=== PATIENT | male | born 1980 | race Caucasian/White ===

== ENCOUNTER 2016-07-19 08:18 | Emergency (ER) | payer MEDICAID, MEDICARE ==
[2016-07-19 08:45] VITALS: BP 144/95
[2016-07-19] MEDS ORDERED: cefTRIAXone VIAL(*) 1,000 MG VIAL IM ONE (09:09)
[2016-07-19] MEDS ORDERED: Azithromycin TAB* 250 MG PO ONE (09:10)
[2016-07-19] MEDS ORDERED: Lidocaine 1% MPF* 2 ML VIAL ONE (09:14)
--- NOTE | 2016-07-19 09:16 | UC ---
Complaint Male HPI - HPI Summary HPI Summary: 1) Having herpes outbreak starting about a week ago. Had initial outbreak years ago, then was put on daily valtrex. He recently moved away from his PCP and ran out of the valtrex. In a lot of pain, denies drainage or hard lumps. 2) Dysuria starting 2-3 days ago. Reports one UTI in the past. No fever or flank pain. Took pyridium given by sister. Last sexual encounter with woman in May, reports using condom. No recent GC/CHlamydia testing. - History of Current Complaint Chief Complaint: UCGU Stated Complaint: URINARY ISSUE Time Seen by Provider: 07/19/16 08:48 Hx Obtained From: Patient Onset/Duration: Gradual Onset, Lasting Days Timing: Constant Severity Initially: Mild Severity Currently: Moderate Location: Suprapubic - herpes lesions Character: Burning Aggravating Factor(s): Voiding, Palpation Alleviating Factor(s): Nothing Associated Signs And Symptoms: Positive: Dysuria - Allergies/Home Medications Allergies/Adverse Reactions: Allergies Allergy/AdvReac Type Severity Reaction Status Date / Time No Known Allergies Allergy Verified 07/19/16 08:46 Home Medications: Home Medications Vivance 70 mg 07/19/16 [History] PMH/Surg Hx/FS Hx/Imm Hx Endocrine History Of: Denies: Diabetes, Thyroid Disease Cardiovascular History Of: Denies: Cardiac Disorders, Hypertension Respiratory History Of: Denies: COPD, Asthma GI/ History Of: Denies: Ulcer Psychological History Of: Reports: Depression Denies: Anxiety, Bipolar Disorder, Schizophrenia, Post Traumatic Stress Disorder - Surgical History Surgical History: Yes Surgery Procedure, Year, and Place: -1994 - Family History Known Family History: Positive: Diabetes Negative: Cardiac Disease, Hypertension - Social History Occupation: Employed Full-time Lives: Alone Alcohol Use: None Substance Use Type: None Smoking Status (MU): Heavy Every Day Tobacco Smoker Amount Used/How Often: 1ppd - Immunization History Most Recent Influenza Vaccination: may 2016 Review of Systems Constitutional: Negative Skin: Rash Eyes: Negative ENT: Negative Respiratory: Negative Cardiovascular: Negative Gastrointestinal: Negative Genitourinary: Dysuria Motor: Negative Neurovascular: Negative Musculoskeletal: Negative Neurological: Negative Psychological: Negative All Other Systems Reviewed And Are Negative: Yes Physical Exam Triage Information Reviewed: Yes Appearance: Well-Appearing, No Pain Distress, Well-Nourished Vital Signs: Initial Vital Signs Temp 98.4 F 07/19/16 08:40 Pulse 106 07/19/16 08:40 Resp 20 07/19/16 08:40 BP 144/95 07/19/16 08:40 Pulse Ox 100 07/19/16 08:40 Vital Signs Reviewed: Yes Eye Exam: Normal Eyes: Positive: Conjunctiva Clear ENT Exam: Normal ENT: Positive: Normal ENT inspection, Hearing grossly normal, Pharynx normal, TMs normal Dental Exam: Normal Neck exam: Normal Neck: Positive: Supple, Nontender, No Lymphadenopathy Respiratory Exam: Normal Respiratory: Positive: Chest non-tender, Lungs clear, Normal breath sounds, No respiratory distress, No accessory muscle use Cardiovascular Exam: Normal Cardiovascular: Positive: RRR, No Murmur Abdomen Description: Negative: CVA Tenderness (R), CVA Tenderness (L) Musculoskeletal Exam: Normal Neurological Exam: Normal Psychological Exam: Normal Skin Exam: Other - few red spots just superior to penis. No ulcers or drainage. Complaint Male Course/Dx - Differential Dx/Diagnosis Provider Diagnoses: Genital herpes. dysuria Discharge - Discharge Plan Condition: Stable Disposition: HOME Prescriptions: Indomethacin CAP* [Indocin CAP*] 50 mg PO TID PRN #30 cap PRN Reason: Pain ValACYclovir (*) [Valtrex 500 mg (*)] 500 mg PO DAILY #30 tab Patient Education Materials: Genital Herpes Simplex (ED), Dysuria (ED) Referrals: [facility] [Outside] Additional Instructions: Labwork pending to help determine if you have a urinary infection. Please call the physician referral center [facility] to arrange for a primary care provider.
== END 2016-07-19 09:40 | disposition home or self-care (01) ==
LOC: UCEAST 08:18
DX: A60.00 Herpesviral infection of urogenital system, unspecified (principal); R30.0 Dysuria
CPT/HCPCS: 81002; 87086; 87491; 87591; 96372; 99212; A9270-GY; G0463; J0696

== ENCOUNTER 2016-07-24 13:55 | Emergency (ER) | payer MEDICAID, MEDICARE ==
[2016-07-24 14:08] VITALS: BP 145/78
[2016-07-24] MEDS ORDERED: LORazepam TAB(*) 1 MG PO ONE (14:18)
[2016-07-24] MEDS ORDERED: Aspirin EC Low Dose* 81 MG TAB.EC PO ONE (14:21)
[2016-07-24] MEDS ORDERED: Aspirin Low Dose CHEW TAB* 81 MG ONE (14:29)
--- NOTE | 2016-07-24 14:29 | UC ---
Cardiac HPI - HPI Summary HPI Summary: intermittent chest pains for the past few months, sharp and stabbing and lasting a few minutes at a time. Today he has had constant pain in left chest for past 3 hours, pressure and very uncomfortable. Radiates up into neck. Left arm "completely numb". Feels heart palpitations from time to time. Feels dizzy and like he might pass out. Occasionally with SOB. No history of heart disease, but father of heart attack in his 50s. High cholesterol a few years ago. Heavy smoker. He is very concerned about possible heart disease. Takes Vyvanse 70mg now and then, not always daily. No change in past few years with this. Used to be on Effexor for depression, it was discontinued a year ago. Admits to being under a lot of stress recently. Sleeping well. No vomiting, no sweating. No change with exertion, though walking in here his pain worsened - History of Current Complaint Chief Complaint: UC Stated Complaint: CHEST PAIN ARMS NUMB Time Seen by Provider: 07/24/16 14:01 Hx Obtained From: Patient Onset/Duration: Gradual Onset, Lasting Hours - 3 Timing: Constant Initial Severity: Mild Current Severity: Severe Chest Pain Location: Left Anterior Character: Pounding - occasional, Dull/Aching, Tightness, Pressure/Squeezing, Sharp/Stabbing - at times Aggravating: Nothing Alleviating: Nothing Associated Signs & Symptoms: Positive: Chest Pain, Recent Stress, Numbness - left arm, Weakness, Dizziness, SOB - off and on today, Diaphoresis - off and on today, Palpitations. Negative: Anxiety, Fever, Cough, Hemoptysis, Back Pain - Risk Factors Pulmonary Embolism Risk Factors: Smoking Cardiac Risk Factors: Smoking, Elevated Lipids, Family History Atrial Fibrillation: Negative TAD Risk Factors: Negative AMI/ACS Risk Factors: Family History, Smoking, Dyslipidemia - Allergy/Home Medications Allergies/Adverse Reactions: Allergies Allergy/AdvReac Type Severity Reaction Status Date / Time No Known Allergies Allergy Verified 07/24/16 14:02 Home Medications: Home Medications Aspirin [Aspirtab Maximum Strength] 500 mg PO DAILY PRN 07/24/16 [History Confirmed 07/24/16] Esomeprazole Magnesium [Nexium] 40 mg PO DAILY 07/24/16 [History Confirmed 07/24] Ibuprofen [Ibuprofen 200 MG] 200 mg PO Q8H PRN 07/24/16 [History Confirmed 07/24] PMH/Surg Hx/FS Hx/Imm Hx - Additional Past Medical History Additional PMH: ADHD treated with Vyvanse Endocrine History Of: Denies: Diabetes, Thyroid Disease Cardiovascular History Of: Denies: Cardiac Disorders, Hypertension Respiratory History Of: Denies: COPD, Asthma GI/ History Of: Denies: Ulcer Psychological History Of: Reports: Depression Denies: Anxiety, Bipolar Disorder, Schizophrenia, Post Traumatic Stress Disorder - Surgical History Surgical History: Yes Surgery Procedure, Year, and Place: hernia-1994 - Family History Known Family History: Positive: Diabetes Negative: Cardiac Disease, Hypertension - Social History Occupation: Employed Full-time - works on a farm, heavy lifting Lives: With Family Alcohol Use: None Substance Use Type: None Smoking Status (MU): Heavy Every Day Tobacco Smoker Amount Used/How Often: 1 1/2ppd - Immunization History Most Recent Influenza Vaccination: may 2016 Review of Systems Constitutional: Negative Skin: Negative Eyes: Negative ENT: Negative Respiratory: Shortness Of Breath Cardiovascular: Palpitations, Chest Pain Gastrointestinal: Negative Genitourinary: Negative Motor: Negative Neurovascular: Negative Musculoskeletal: Negative Neurological: Paresthesia - left arm/hand numb and tingly off and on today, Numbness Psychological: Anxious All Other Systems Reviewed And Are Negative: Yes Physical Exam Triage Information Reviewed: Yes Appearance: Well-Appearing, Well-Nourished, Pain Distress - looks anxious, clutching his chest Vital Signs: Initial Vital Signs Temp 97.6 F 07/24/16 14:04 Pulse 105 07/24/16 14:04 Resp 16 07/24/16 14:04 BP 145/78 07/24/16 14:04 Pulse Ox 100 07/24/16 14:04 Vital Signs Reviewed: Yes Eye Exam: Normal Neck exam: Normal Neck: Positive: Supple Respiratory Exam: Normal Respiratory: Positive: Lungs clear, Normal breath sounds, No respiratory distress, No accessory muscle use. Negative: Crackles, Wheezing Cardiovascular Exam: Normal Cardiovascular: Positive: RRR, No Murmur, Pulses Normal, Brisk Capillary Refill Abdominal Exam: Normal Musculoskeletal Exam: Normal Neurological Exam: Normal Neurological: Positive: Alert, Muscle Tone Normal, Other: - normal movement of left hand, htough he says it feels strange to light touch. Normal gait and station. Gets up on exam table without difficulty Psychological Exam: Other - anxious, appears very worried Psychological: Positive: Normal Response To Family Skin Exam: Normal Skin: Positive: Other - not diaphoretic; pink, good capillary refill Diagnostics - Laboratory Diagnostic Studies Completed/Ordered: EKG: NSR, no ischemic changes, no comparison - Differential Diagnoses - Chest Pain Differential Diagnosis/HQI/PQRI: Acute [place], Angina, Lower Respiratory Infection, Pulmonary Embolism - Clinical Impression Provider Diagnoses: chest pain - Physician Notifications Discussed Patient Care With: NEETA Santamaria Time Discussed With Above Provider: 14:20 Instructed by Provider To: MD Will See In ED Discharge - Discharge Plan Condition: Stable Disposition: TRANS HIGHER LVL OF CARE FAC Referrals: No Primary Care Phys,NOPCP [Primary Care Provider] -
== END 2016-07-24 14:45 | disposition short-term general hospital (02) ==
LOC: UCEAST 13:55
DX: R07.89 Other chest pain (principal); R20.0 Anesthesia of skin; F17.210 Nicotine dependence, cigarettes, uncomplicated
CPT/HCPCS: 99213; A9270-GY; G0463

== ENCOUNTER 2016-07-24 15:08 | Emergency (ER) | payer MEDICARE, MEDICAID ==
[2016-07-24] MEDS ORDERED: Aspirin Low Dose CHEW TAB* 81 MG PO ONE (15:22)
[2016-07-24 16:18] LABS: Hematocrit 48 % (42-52); Hemoglobin 16.6 g/dl (14.0-18.0); Mean Corpuscular HGB Conc 34 g/dl (31-36); Mean Corpuscular Hemoglobin 31 pg (27-31); Mean Corpuscular Volume 90 fL (80-94); Mean Platelet Volume 8 um3 (7.4-10.4); Red Blood Count 5.35 10^6/ul (4.0-5.4); Red Cell Distribution Width 13 % (10.5-15); White Blood Count 9.5 10^3/ul (3.5-10.8)
--- NOTE | 2016-07-24 16:32 | RAD ---
HISTORY: Chest pain COMPARISONS: None VIEWS:1: Single frontal portable view of the chest at 3:55 PM FINDINGS: LINES AND TUBES: None. CARDIOMEDIASTINAL SILHOUETTE: The cardiomediastinal silhouette is normal for portable technique. PLEURA: The costophrenic angles are sharp. No pleural abnormalities are noted. LUNG PARENCHYMA: The lungs are clear. ABDOMEN: The upper abdomen is clear. There is no subphrenic gas. BONES AND SOFT TISSUES: No bone or soft tissue abnormalities are noted. IMPRESSION: NO ACTIVE CARDIOPULMONARY DISEASE.
[2016-07-24 16:35] LABS: Albumin 4.7 g/dL (3.2-5.2); BUN/Creatinine Ratio 12.2 (8-20); Calcium 9.9 mg/dL (8.6-10.3); EGFR African American 111.3 (>60); EGFR Non-African American 86.5 (>60); Globulin 2.8 g/dL (2-4); Magnesium 2.1 mg/dL (1.9-2.7); Potassium 3.4 mmol/L (3.5-5.0); Total Bilirubin 0.5 mg/dL (0.2-1.0); Total Protein 7.5 g/dL (6.4-8.9)
[2016-07-24 16:53] LABS: TSH (Thyroid Stimulating Horm) 0.75 mcIU/mL (0.34-5.60)
[2016-07-24] MEDS ORDERED: hydrOXYzine HCL TAB* 25 MG ONE (18:09)
[2016-07-24] MEDS ORDERED: Ibuprofen TAB* 600 MG ONE (18:09)
[2016-07-24] MEDS ORDERED: hydrOXYzine HCL TAB* 50 MG PO ONE (18:10)
[2016-07-24] MEDS ORDERED: Ibuprofen TAB* 600 MG PO ONE (18:11)
[2016-07-24] MEDS ORDERED: Potassium Chlor TAB* 20 MEQ TAB.ER PO ONE (18:12)
[2016-07-24 18:47] VITALS: BP 123/77
--- NOTE | 2016-07-24 19:07 | ED ---
Maliha Aguillon Claudia, scribed for Romero Thomas MD on 07/24/16 at 1521 . HPI Chest Pain - HPI Summary HPI Summary: 35 year old male presents to the ED with CP. Pt is referred to [facility] ED from Urgent Care. Pt also admits to bilateral arm numbness which has now localized to his left arm. Pt describes the left anterior CP as a pressure/tightness. Pt also admits to elevated HR and SOB. Pt denies N/V. FHx: Cardiac Disease, father [place] at age 55 SHX: Heavy cigarette usage - History of Current Complaint Time Seen by Provider: 07/24/16 15:18 Hx Obtained From: Patient Onset/Duration: Started Hours Ago, Still Present Timing: Constant Chest Pain Location: Left Anterior Chest Pain Radiates: No Character: Dyspnea at Rest, Pressure/Squeezing, Tightness Aggravating Factor(s): Nothing Alleviating Factor(s): Nothing Associated Signs and Symptoms: Positive: Chest Pain, Numbness - left arm, Shortness of Breath. Negative: Nausea, Vomiting - Allergy/Home Medications Allergies/Adverse Reactions: Allergies Allergy/AdvReac Type Severity Reaction Status Date / Time No Known Allergies Allergy Verified 07/24/16 14:02 PMH/Surg Hx/FS Hx/Imm Hx Previously Healthy: Yes Endocrine/Hematology History: Denies: Hx Diabetes, Hx Thyroid Disease Cardiovascular History: Denies: Hx Hypertension Respiratory History: Denies: Hx Asthma, Hx Chronic Obstructive Pulmonary Disease (COPD) GI History: Denies: Hx Ulcer Psychiatric History: Reports: Hx Depression Denies: Hx Anxiety, Hx Schizophrenia, Hx Bipolar Disorder - Surgical History Surgery Procedure, Year, and Place: -1994 Infectious Disease History: Denies: Hx Clostridium Difficile, Hx Hepatitis, Hx Human Immunodeficiency Virus (HIV), Hx of Known/Suspected MRSA, Hx Shingles, Hx Tuberculosis, Hx Known/ Suspected VRE, Hx Known/Suspected VRSA, History Other Infectious Disease - Family History Known Family History: Positive: Cardiac Disease - Father [place] age 55 , Diabetes Negative: Hypertension - Social History Occupation: Unemployed Alcohol Use: None Substance Use Type: Reports: None Smoking Status (MU): Heavy Every Day Tobacco Smoker Amount Used/How Often: 1 1/2ppd Review of Systems Constitutional: Negative Eyes: Negative ENT: Negative Positive: Chest Pain Positive: Shortness Of Breath Gastrointestinal: Negative Negative: Vomiting, Nausea Genitourinary: Negative Musculoskeletal: Negative Skin: Negative Positive: Numbness - left arm Psychological: Normal All Other Systems Reviewed And Are Negative: Yes Physical Exam - Summary Physical Exam Summary: VITAL SIGNS: Reviewed. GENERAL: Patient is a well developed and nourished male who is lying comfortable in the stretcher. Patient is not in any acute respiratory distress. HEAD AND FACE: No signs of trauma. No ecchymosis, hematomas or skull depressions. No sinus tenderness. EYES: PERRLA, EOMI x 2, No injected conjunctiva, no nystagmus. EARS: Hearing grossly intact. Ear canals and tympanic membranes are within normal limits. MOUTH: Oropharynx within normal limits. NECK: Supple, trachea is midline, no adenopathy, no JVD, no carotid bruit, no c- spine tenderness, neck with full ROM. CHEST: Symmetric, no tenderness at palpation LUNGS: Clear to auscultation bilaterally. No wheezing or crackles. CVS: Regular rate and rhythm, S1 and S2 present, no murmurs or gallops appreciated. ABDOMEN: Soft, non-tender. No signs of distention. No rebound no guarding, and no masses palpated. Bowel sounds are normal. EXTREMITIES: FROM in all major joints, no edema, no cyanosis or clubbing. NEURO: Alert and oriented x 3. No acute neurological deficits. Speech is normal and follows commands. SKIN: Dry and warm Triage Information Reviewed: Yes Vital Signs Reviewed: Yes Diagnostics - Laboratory Result Diagrams: 07/24/16 16:00 07/24/16 16:00 Lab Statement: Any lab studies that have been ordered have been reviewed, and results considered in the medical decision making process. - Radiology CHEST XRAY Xray Interpretation: No Acute Changes - NO ACTIVE CARDIOPULMONARY DISEASE Radiology Interpretation Completed By: Radiologist - EKG 15:07 Cardiac Rate: NL EKG Rhythm: Sinus Rhythm - 74 beats/min ST Segment: Normal - no ST elevation EKG Interpretation: Q waves in V1 and V2 18:19 Cardiac Rate: NL EKG Rhythm: Sinus Rhythm - 75 beats/min ST Segment: Normal - no ST elevation Chest Pain Course/Dx - Course Assessment/Plan: This pt is a 35 year old male who presents to the ED after transferred from urgent care. Pt presented with c/c of CP. CP described as sharp pain and not associated with exertion, nausea, vomiting or diaphoresis. Lab results are within nml limits, sodium of 128 and potassium of 3.4. Troponin is 0.00. CXR displays no acute pathology. EKG 1 shows NSR with no ST elevation and EKG 2 same as the first. Pt seems to be very anxious and was given atarax, after medication Sx improved. He is feeling better with no other complaints. Patient reports that all symptoms have resolved. Patient has been observed in the ER for approximately 3 hours. Because the patient has no significant comorbidities and no family history of cardiovascular disease the patient will be discharged home with follow up of PMD. I discussed all the findings and test results with the patient. Patient was instructed to return to the emergency room immediately if any of the symptoms return or worsens. Patient understands and agrees. Plan of care was discussed with the patient and patient understands and agrees. All questions were answered at patient satisfaction. There were no further complaints or concerns. PE before discharge: CVS: S1 and S2 present. No murmurs appreciated. Abdominal exam before discharge: Soft, non- tender. No signs of distention. No rebound no guarding, and no masses palpated. Bowel sounds are normal. Patient is alert and oriented x 3. Patient is hemodynamically stable. - Chest Pain Differential Diagnosis/HQI/PQRI: Acute [place], ACS, Angina, CHF, Chest Wall, GI Disease, Lower Respiratory Infection - Diagnoses Provider Diagnoses: Chest pain, Anxiety Discharge - Discharge Plan Condition: Stable Disposition: HOME Prescriptions: hydrOXYzine HCL TAB* [Atarax TAB*] 25 mg PO TID PRN #30 tab PRN Reason: Anxiety Patient Education Materials: Chest Pain (ED), Anxiety (ED), Hydroxyzine (By mouth) Referrals: [facility] [Outside] - 2 Days (Please follow-up with a Primary Care Provider.) The documentation as recorded by the Maliha millard Claudia accurately reflects the service I personally performed and the decisions made by me, Romero Thomas MD.
== END 2016-07-24 18:43 | disposition home or self-care (01) ==
LOC: ED 15:08
DX: R07.9 Chest pain, unspecified (principal); F41.9 Anxiety disorder, unspecified
CPT/HCPCS: 36415; 71010; 80053; 82553; 83605; 83735; 83874; 83880; 84443; 84484; 85025; 93005; 99213; 99284; A9270-GY; G0463

== ENCOUNTER 2016-12-09 10:26 | Emergency (ER) | payer MEDICARE, MEDICAID ==
[2016-12-09] MEDS ORDERED: Aspirin Low Dose CHEW TAB* 81 MG PO ONE (11:41)
[2016-12-09 11:45] VITALS: BP 128/76
--- NOTE | 2016-12-09 14:03 | UC ---
I, Ponce,Miah, scribed for Carmelita Sarmiento DO on 12/09/16 at 1141 . Cardiac HPI - HPI Summary HPI Summary: This 35 y/o male presents to [facility] for constant 7/10, left sided CP since 2 days ago. Pain radiates to neck and described as dull CP with intermittent sharp pain lasting seconds. Negative ear ache, eye discharge, dysuria, HUSSEIN, rash, CP, SOB, and diaphoresis. Positive coughing. Stress and movement make the pain worse. Pt decided to visit [facility] when he became concerned about possible cardiac etiologies. 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 Pt denies any PMHx, but he is currently on Vyvanse. Last visit to [facility] and ED was in July 2016 and due for similar complaint. Pt was discharged home with dx of CP and anxiety and rx of hydroxyzine. FHx is positive for DM and cardiac dz to father. Pt is heavy everyday smoker. Pt is strongly recommended to be transfer to [facility], but pt declines. R/b/a is discussed with pt, and pt is discharged AMA with family physician referral, and STRONG staff counsel against smoking. Pt is advised against IBP or NSAID, but recommended tylenol for pain control. - History of Current Complaint Chief Complaint: UCChestPain Stated Complaint: CHEST PAIN Time Seen by Provider: 12/09/16 10:51 Hx Obtained From: Patient, Medical Records Onset/Duration: Sudden Onset, Still Present Pain Intensity: 7 Chest Pain Location: Left Anterior Character: Pressure/Squeezing, Sharp/Stabbing - intermittent Aggravating: Exertion, Movement Alleviating: Nothing Associated Signs & Symptoms: Positive: Chest Pain, Recent Stress, Cough. Negative: SOB, Fever, Nausea/Vomiting, Calf Pain/Swelling - Allergy/Home Medications Allergies/Adverse Reactions: Allergies Allergy/AdvReac Type Severity Reaction Status Date / Time No Known Allergies Allergy Verified 07/24/16 14:02 PMH/Surg Hx/FS Hx/Imm Hx Endocrine History Of: Denies: Diabetes, Thyroid Disease Cardiovascular History Of: Denies: Cardiac Disorders, Hypertension Respiratory History Of: Denies: COPD, Asthma GI/ History Of: Denies: Ulcer Psychological History Of: Reports: Depression Denies: Anxiety, Bipolar Disorder, Schizophrenia, Post Traumatic Stress Disorder - Surgical History Surgical History: Yes Surgery Procedure, Year, and Place: hernia-1994 - Family History Known Family History: Positive: Cardiac Disease - Father [place] age 55 , Diabetes Negative: Hypertension - Social History Lives: Alone Alcohol Use: None Substance Use Type: None Smoking Status (MU): Heavy Every Day Tobacco Smoker Amount Used/How Often: 1ppd Cessation Counseling: Counseled 3+Min - 10 Min - Immunization History Most Recent Influenza Vaccination: may 2016 Review of Systems Constitutional: Negative Skin: Negative Eyes: Negative ENT: Negative Respiratory: Cough Cardiovascular: Chest Pain Gastrointestinal: Negative Genitourinary: Negative Motor: Negative Neurovascular: Negative Musculoskeletal: Negative Neurological: Negative Psychological: Negative All Other Systems Reviewed And Are Negative: Yes Physical Exam Triage Information Reviewed: Yes Appearance: Well-Appearing, No Pain Distress, Well-Nourished Vital Signs: Initial Vital Signs Temp 98.1 F 12/09/16 11:04 Pulse 87 12/09/16 11:04 Resp 18 12/09/16 11:04 BP 128/76 12/09/16 11:04 Pulse Ox 100 12/09/16 11:04 Vital Signs Reviewed: Yes Eyes: Positive: Conjunctiva Clear. Negative: Discharge ENT: Positive: Hearing grossly normal. Negative: Muffled/hoarse voice Neck exam: Normal Neck: Positive: Supple Respiratory: Positive: Lungs clear, Normal breath sounds, No respiratory distress Cardiovascular: Positive: No Murmur, Tachycardia - HR of 104 noted during physical exam Musculoskeletal: Positive: Strength Intact, ROM Intact Neurological: Positive: Muscle Tone Normal Psychological: Positive: Age Appropriate Behavior Skin Exam: Normal Diagnostics - EKG Cardiac Rate: NL - 70 bpm Cardiac Rhythm: Sinus: Normal Ectopy: None ST Segment: Normal - No change since 07/24/2016 Re-Evaluation - Re-Evaluation First Eval Re-Evaluation Time: 11:42 Comment: Plan of care is discussed with pt, and pt is again strongly reminded to visit ED if pt develops dizziness, diaphoresis, or nausea. Pt states that he has already taken ASA this morning [employer]NAL [employer]UITER. ASA order at cancelled. - Assessment/Plan Course Of Treatment: Medication list reivewed and confirmed. Vital signed reviewed. - Differential Diagnoses - Chest Pain Differential Diagnosis/HQI/PQRI: Acute [place], ACS, Angina, Chest Wall, GI Disease, Lower Respiratory Infection - Clinical Impression Provider Diagnoses: chest pain Discharge - Discharge Plan Condition: Stable Disposition: AGAINST MEDICAL ADVICE Referrals: No Primary Care Phys,NOPCP [Primary Care Provider] - The documentation as recorded by the Ponce millard Soohyun accurately reflects the service I personally performed and the decisions made by , Carmelita Sarmiento DO.
== END 2016-12-09 11:47 | disposition left against medical advice (07) ==
LOC: UCEAST 10:26
DX: R07.9 Chest pain, unspecified (principal); F17.210 Nicotine dependence, cigarettes, uncomplicated; F32.9 Major depressive disorder, single episode, unspecified
CPT/HCPCS: 93005; 99212; G0463

== ENCOUNTER 2016-12-09 13:34 | Emergency (ER) | payer MEDICARE, MEDICAID ==
[2016-12-09] MEDS ORDERED: Aspirin Low Dose CHEW TAB* 81 MG PO ONE (15:01)
[2016-12-09 15:29] LABS: Urine Bilirubin Negative (Negative); Urine Glucose Negative (Negative); Urine Nitrite Negative (Negative)
--- NOTE | 2016-12-09 15:41 | RAD ---
HISTORY: Chest pain COMPARISONS: July 24, 2016 VIEWS:1: Single frontal portable view of the chest at 3:14 PM FINDINGS: LINES AND TUBES: None. CARDIOMEDIASTINAL SILHOUETTE: The cardiomediastinal silhouette is normal for portable technique. PLEURA: The costophrenic angles are sharp. No pleural abnormalities are noted. LUNG PARENCHYMA: The lungs are clear. ABDOMEN: The upper abdomen is clear. There is no subphrenic gas. BONES AND SOFT TISSUES: No bone or soft tissue abnormalities are noted. IMPRESSION: NO ACTIVE CARDIOPULMONARY DISEASE.
[2016-12-09 16:01] LABS: Hematocrit 46 % (42-52); Hemoglobin 15.7 g/dl (14.0-18.0); Mean Corpuscular HGB Conc 34 g/dl (31-36); Mean Corpuscular Hemoglobin 31 pg (27-31); Mean Corpuscular Volume 89 fL (80-94); Mean Platelet Volume 8 um3 (7.4-10.4); Red Blood Count 5.15 10^6/ul (4.0-5.4); Red Cell Distribution Width 13 % (10.5-15); White Blood Count 10.6 10^3/ul (3.5-10.8)
[2016-12-09] MEDS ORDERED: Ketorolac INJ* 30 MG/ML 1 ML VIAL IV PUSH ONE (16:14)
[2016-12-09 16:19] LABS: Albumin 4.3 g/dL (3.2-5.2); BUN/Creatinine Ratio 13.2 (8-20); Calcium 9.5 mg/dL (8.6-10.3); EGFR African American 121.2 (>60); EGFR Non-African American 94.3 (>60); Globulin 2.8 g/dL (2-4); Magnesium 2.1 mg/dL (1.9-2.7); Potassium 3.6 mmol/L (3.5-5.0); Total Bilirubin 0.6 mg/dL (0.2-1.0); Total Protein 7.1 g/dL (6.4-8.9)
[2016-12-09 16:45] LABS: T4 7.35 mcg/mL (6.09-12.23)
[2016-12-09 16:46] LABS: TSH (Thyroid Stimulating Horm) 0.95 mcIU/mL (0.34-5.60)
[2016-12-09 18:29] VITALS: BP 105/68
--- NOTE | 2016-12-09 18:38 | ED ---
carlos Aguillon Timothy, scribed for Romero Thomas MD on 12/09/16 at 1513 . HPI Chest Pain - HPI Summary HPI Summary: Too James is a 35 yo male presenting to [facility] with intermediate 10/10 sharp left sided CP and tightness radiating through his left arm and jaw since , with episodes lasting seconds. He has felt nauseous and dizzy as well. Pt is now SOB, and has a FHx of fatal OR at a young age. He has self medicated with tylenol. His MHx includes depression, tobacco use. - History of Current Complaint Chief Complaint: EDChestPainROMI Time Seen by Provider: 12/09/16 14:59 Hx Obtained From: Patient Onset/Duration: Started Days Ago, Still Present Timing: Intermittent, Lasting Seconds Initial Severity: Moderate Current Severity: Moderate Pain Intensity: 10 Pain Scale Used: 0-10 Numeric Chest Pain Location: Discrete at: - left side Chest Pain Radiates: Yes Chest Pain Radiates To:: Arm - left, Jaw Character: Sharp/Stabbing, Tightness Associated Signs and Symptoms: Positive: Chest Pain, Shortness of Breath, Nausea - Allergy/Home Medications Allergies/Adverse Reactions: Allergies Allergy/AdvReac Type Severity Reaction Status Date / Time No Known Allergies Allergy Verified 07/24/16 14:02 PMH/Surg Hx/FS Hx/Imm Hx Endocrine/Hematology History: Denies: Hx Diabetes, Hx Thyroid Disease Cardiovascular History: Denies: Hx Hypertension Respiratory History: Denies: Hx Asthma, Hx Chronic Obstructive Pulmonary Disease (COPD) GI History: Denies: Hx Ulcer Psychiatric History: Reports: Hx Depression Denies: Hx Anxiety, Hx Schizophrenia, Hx Bipolar Disorder - Surgical History Surgery Procedure, Year, and Place: -1994 Infectious Disease History: No Infectious Disease History: Denies: Hx Clostridium Difficile, Hx Hepatitis, Hx Human Immunodeficiency Virus (HIV), Hx of Known/Suspected MRSA, Hx Shingles, Hx Tuberculosis, Hx Known/ Suspected VRE, Hx Known/Suspected VRSA, History Other Infectious Disease, Traveled Outside the [place] in Last 30 Days - Family History Known Family History: Positive: Cardiac Disease - Father OR age 55 , Diabetes Negative: Hypertension - Social History Alcohol Use: None Hx Substance Use: No Substance Use Type: Reports: None Smoking Status (MU): Heavy Every Day Tobacco Smoker Amount Used/How Often: 1 1/2ppd Review of Systems Constitutional: Negative Eyes: Negative ENT: Negative Positive: Chest Pain Positive: Shortness Of Breath Gastrointestinal: Negative Positive: Nausea Genitourinary: Negative Musculoskeletal: Negative Skin: Negative Neurological: Other - dizziness Psychological: Normal All Other Systems Reviewed And Are Negative: Yes Physical Exam - Summary Physical Exam Summary: VITAL SIGNS: Reviewed. GENERAL: Patient is a well-developed and nourished male who is lying comfortable in the stretcher. Patient is not in any acute respiratory distress. HEAD AND FACE: No signs of trauma. No ecchymosis, hematomas or skull depressions. No sinus tenderness. EYES: PERRLA, EOMI x 2, No injected conjunctiva, no nystagmus. EARS: Hearing grossly intact. Ear canals and tympanic membranes are within normal limits. MOUTH: Oropharynx within normal limits. NECK: Supple, trachea is midline, no adenopathy, no JVD, no carotid bruit, no c- spine tenderness, neck with full ROM. CHEST: Symmetric, no tenderness at palpation LUNGS: Clear to auscultation bilaterally. No wheezing or crackles. CVS: Regular rate and rhythm, S1 and S2 present, no murmurs or gallops appreciated. ABDOMEN: Soft, non-tender. No signs of distention. No rebound no guarding, and no masses palpated. Bowel sounds are normal. EXTREMITIES: FROM in all major joints, no edema, no cyanosis or clubbing. NEURO: Alert and oriented x 3. No acute neurological deficits. Speech is normal and follows commands. SKIN: Dry and warm Triage Information Reviewed: Yes Vital Signs On Initial Exam: Initial Vitals Temp Pulse Resp BP Pulse Ox 97.8 F 93 16 145/94 100 12/09/16 13:35 12/09/16 13:35 12/09/16 13:35 12/09/16 13:35 12/09/16 13:35 Vital Signs Reviewed: Yes Diagnostics - Vital Signs Vital Signs Temp Pulse Resp BP Pulse Ox 12/09/16 14:43 97.1 F 90 18 140/83 99 12/09/16 13:35 97.8 F 93 16 145/94 100 - Laboratory Lab Results: Lab Results 12/09/16 12/09/16 12/09/16 Range/Units 13:45 15:50 15:50 WBC 10.6 (3.5-10.8) 10^3/ul RBC 5.15 (4.0-5.4) 10^6/ul Hgb 15.7 (14.0-18.0) g/dl Hct 46 (42-52) % MCV 89 (80-94) fL MCH 31 (27-31) pg MCHC 34 (31-36) g/dl RDW 13 (10.5-15) % Plt Count 212 (150-450) 10^3/ul MPV 8 (7.4-10.4) um3 Neut % (Auto) 67.0 (38-83) % Lymph % (Auto) 26.7 (25-47) % Gibson % (Auto) 4.5 (1-9) % Eos % (Auto) 1.2 (0-6) % Baso % (Auto) 0.6 (0-2) % Absolute Neuts (auto) 7.1 (1.5-7.7) 10^3/ul Absolute Lymphs (auto) 2.8 (1.0-4.8) 10^3/ul Absolute Monos (auto) 0.5 (0-0.8) 10^3/ul Absolute Eos (auto) 0.1 (0-0.6) 10^3/ul Absolute Basos (auto) 0.1 (0-0.2) 10^3/ul Absolute Nucleated RBC 0 10^3/ul Nucleated RBC % 0 D-Dimer, Quantitative < 200 (Less Than 230) ng/mL Sodium (133-145) mmol/L Potassium (3.5-5.0) mmol/L Chloride (101-111) mmol/L Carbon Dioxide (22-32) mmol/L Anion Gap (2-11) mmol/L BUN (6-24) mg/dL Creatinine (0.67-1.17) mg/dL Est GFR ( Amer) (>60) Est GFR (Non-Af Amer) (>60) BUN/Creatinine Ratio (8-20) Glucose (70-100) mg/dL Lactic Acid (0.5-2.0) mmol/L Calcium (8.6-10.3) mg/dL Magnesium (1.9-2.7) mg/dL Total Bilirubin (0.2-1.0) mg/dL AST (13-39) U/L ALT (7-52) U/L Alkaline Phosphatase (34-104) U/L Total Creatine Kinase (10-223) U/L CK-MB (CK-2) (0.6-6.3) ng/mL Myoglobin (17.4-105.7) ng/mL Troponin I (<0.04) ng/mL B-Natriuretic Peptide ( - 100) pg/mL Total Protein (6.4-8.9) g/dL Albumin (3.2-5.2) g/dL Globulin (2-4) g/dL Albumin/Globulin Ratio (1-3) TSH (0.34-5.60) mcIU/mL Thyroxine (T4) (6.09-12.23) mcg/mL Urine Color Straw Urine Appearance Clear Urine pH 6.0 (5-9) Ur Specific [place] 1.006 L (1.010-1.030) Urine Protein Negative (Negative) Urine Ketones Negative (Negative) Urine Blood Negative (Negative) Urine Nitrate Negative (Negative) Urine Bilirubin Negative (Negative) Urine Urobilinogen Negative (Negative) Ur Leukocyte Esterase Negative (Negative) Urine Glucose Negative (Negative) 12/09/16 12/09/16 12/09/16 Range/Units 15:50 15:50 15:50 WBC (3.5-10.8) 10^3/ul RBC (4.0-5.4) 10^6/ul Hgb (14.0-18.0) g/dl Hct (42-52) % MCV (80-94) fL MCH (27-31) pg MCHC (31-36) g/dl RDW (10.5-15) % Plt Count (150-450) 10^3/ul MPV (7.4-10.4) um3 Neut % (Auto) (38-83) % Lymph % (Auto) (25-47) % Gibson % (Auto) (1-9) % Eos % (Auto) (0-6) % Baso % (Auto) (0-2) % Absolute Neuts (auto) (1.5-7.7) 10^3/ul Absolute Lymphs (auto) (1.0-4.8) 10^3/ul Absolute Monos (auto) (0-0.8) 10^3/ul Absolute Eos (auto) (0-0.6) 10^3/ul Absolute Basos (auto) (0-0.2) 10^3/ul Absolute Nucleated RBC 10^3/ul Nucleated RBC % D-Dimer, Quantitative (Less Than 230) ng/mL Sodium 137 (133-145) mmol/L Potassium 3.6 (3.5-5.0) mmol/L Chloride 106 (101-111) mmol/L Carbon Dioxide 24 (22-32) mmol/L Anion Gap 7 (2-11) mmol/L BUN 12 (6-24) mg/dL Creatinine 0.91 (0.67-1.17) mg/dL Est GFR ( Amer) 121.2 (>60) Est GFR (Non-Af Amer) 94.3 (>60) BUN/Creatinine Ratio 13.2 (8-20) Glucose 91 (70-100) mg/dL Lactic Acid 1.8 (0.5-2.0) mmol/L Calcium 9.5 (8.6-10.3) mg/dL Magnesium 2.1 (1.9-2.7) mg/dL Total Bilirubin 0.60 (0.2-1.0) mg/dL AST 17 (13-39) U/L ALT 14 (7-52) U/L Alkaline Phosphatase 57 (34-104) U/L Total Creatine Kinase 141 (10-223) U/L CK-MB (CK-2) 2.9 (0.6-6.3) ng/mL Myoglobin 27.0 (17.4-105.7) ng/mL Troponin I 0.00 (<0.04) ng/mL B-Natriuretic Peptide 30 ( - 100) pg/mL Total Protein 7.1 (6.4-8.9) g/dL Albumin 4.3 (3.2-5.2) g/dL Globulin 2.8 (2-4) g/dL Albumin/Globulin Ratio 1.5 (1-3) TSH 0.95 (0.34-5.60) mcIU/mL Thyroxine (T4) 7.35 (6.09-12.23) mcg/mL Urine Color Urine Appearance Urine pH (5-9) Ur Specific [place] (1.010-1.030) Urine Protein (Negative) Urine Ketones (Negative) Urine Blood (Negative) Urine Nitrate (Negative) Urine Bilirubin (Negative) Urine Urobilinogen (Negative) Ur Leukocyte Esterase (Negative) Urine Glucose (Negative) 12/09/16 Range/Units 17:50 WBC (3.5-10.8) 10^3/ul RBC (4.0-5.4) 10^6/ul Hgb (14.0-18.0) g/dl Hct (42-52) % MCV (80-94) fL MCH (27-31) pg MCHC (31-36) g/dl RDW (10.5-15) % Plt Count (150-450) 10^3/ul MPV (7.4-10.4) um3 Neut % (Auto) (38-83) % Lymph % (Auto) (25-47) % Gibson % (Auto) (1-9) % Eos % (Auto) (0-6) % Baso % (Auto) (0-2) % Absolute Neuts (auto) (1.5-7.7) 10^3/ul Absolute Lymphs (auto) (1.0-4.8) 10^3/ul Absolute Monos (auto) (0-0.8) 10^3/ul Absolute Eos (auto) (0-0.6) 10^3/ul Absolute Basos (auto) (0-0.2) 10^3/ul Absolute Nucleated RBC 10^3/ul Nucleated RBC % D-Dimer, Quantitative (Less Than 230) ng/mL Sodium (133-145) mmol/L Potassium (3.5-5.0) mmol/L Chloride (101-111) mmol/L Carbon Dioxide (22-32) mmol/L Anion Gap (2-11) mmol/L BUN (6-24) mg/dL Creatinine (0.67-1.17) mg/dL Est GFR ( Amer) (>60) Est GFR (Non-Af Amer) (>60) BUN/Creatinine Ratio (8-20) Glucose (70-100) mg/dL Lactic Acid (0.5-2.0) mmol/L Calcium (8.6-10.3) mg/dL Magnesium (1.9-2.7) mg/dL Total Bilirubin (0.2-1.0) mg/dL AST (13-39) U/L ALT (7-52) U/L Alkaline Phosphatase (34-104) U/L Total Creatine Kinase (10-223) U/L CK-MB (CK-2) (0.6-6.3) ng/mL Myoglobin (17.4-105.7) ng/mL Troponin I 0.00 (<0.04) ng/mL B-Natriuretic Peptide ( - 100) pg/mL Total Protein (6.4-8.9) g/dL Albumin (3.2-5.2) g/dL Globulin (2-4) g/dL Albumin/Globulin Ratio (1-3) TSH (0.34-5.60) mcIU/mL Thyroxine (T4) (6.09-12.23) mcg/mL Urine Color Urine Appearance Urine pH (5-9) Ur Specific [place] (1.010-1.030) Urine Protein (Negative) Urine Ketones (Negative) Urine Blood (Negative) Urine Nitrate (Negative) Urine Bilirubin (Negative) Urine Urobilinogen (Negative) Ur Leukocyte Esterase (Negative) Urine Glucose (Negative) Result Diagrams: 12/09/16 15:50 12/09/16 15:50 Lab Statement: Any lab studies that have been ordered have been reviewed, and results considered in the medical decision making process. - Radiology CXR Xray Interpretation: No Acute Changes - IMPRESSION: NO ACTIVE CARDIOPULMONARY DISEASE. Radiology Interpretation Completed By: Radiologist - EKG 1337 Cardiac Rate: NL - 72 BPM EKG Interpretation: NSR @ 72 BPM, no ST elevations Re-Evaluation - Re-Evaluation First Eval Re-Evaluation Time: 18:27 Change: Improved Comment: Pt states his pain has improved. He also states that he has been lifting heavy rocks for the past 2 days which might have contributed to his pain. Chest Pain Course/Dx - Course Assessment/Plan: Too James is a 35 yo male presenting to [facility] with 10/10 left sided CP for the past 3 days radiating into his left arm and jaw. In the ED course he received ASA as an anticoagulant and toradol for pain management. His EKG suggests NSR and no ST elevations. His CXR suggests no active cardiopulmonary disease. After clinical examination and review of his lab and imaging studies, he will be discharged home with chest wall pain with appropriate instructions. Pt's bloodwork is WNL, his EKG is NSR with no ST elevations. CXR is negative for acute pathology. Troponin I was 0.00, 4 hours later troponin II is 0.00. He was given toradol for the pain, and saw it subside. Since the Pt has been lifting heavy rocks for the past two days, I believe the pain to be more musculoskeletal in nature. He is hemodynamically stable and A&Ox3. He will take ibuprofen for pain management PRN. I discussed all the findings and test results with the patient. Patient was instructed to return to the emergency room immediately if any of the symptoms return or worsens. Patient understands and agrees. Plan of care was discussed with the patient and patient understands and agrees with the plan of care. All questions were answered at patient satisfaction. There were no further complaints or concerns. Patient is alert and oriented x 3. Patient vital signs are stable. Patient is to follow up with primary care physician in the next 2 to 3 days. Patient understands and agrees. - Chest Pain Differential Diagnosis/HQI/PQRI: Acute OR - Diagnoses Provider Diagnoses: Chest wall pain Discharge - Discharge Plan Condition: Stable Disposition: HOME Patient Education Materials: Chest Wall Pain (ED) Referrals: [facility] [Outside] - 2 Days Additional Instructions: Please follow up with the primary care physician provided regarding your visit to the emergency department today. Return to the emergency department with any new or recurring symptoms. The documentation as recorded by the carlos millard Timothy accurately reflects the service I personally performed and the decisions made by me, Romero Thomas MD.
== END 2016-12-09 18:30 | disposition home or self-care (01) ==
LOC: ED 13:34
DX: R07.89 Other chest pain (principal); F17.210 Nicotine dependence, cigarettes, uncomplicated; Z82.49 Family history of ischemic heart disease and other diseases of the circulatory system
CPT/HCPCS: 36415; 71010; 80053; 81003; 82550; 82553; 83605; 83735; 83874; 83880; 84436; 84443; 84484; 85025; 85379; 93005; 96374; 99284; A9270-GY; J1885

== ENCOUNTER 2017-01-09 13:06 | Emergency (ER) | payer MEDICAID, MEDICARE, OTHER ==
[2017-01-09] MEDS ORDERED: oxyCODONE/Acetamin 5/325 MG* TAB PO ONE ×2 (13:47→21:00)
--- NOTE | 2017-01-09 14:24 | RAD ---
INDICATION: Left rib injury. TECHNIQUE: 2 views of the left ribs were obtained. FINDINGS: No fracture or significant focal osseous abnormality is seen. IMPRESSION: NO EVIDENCE FOR FRACTURE.
--- NOTE | 2017-01-09 14:26 | RAD ---
INDICATION: Trauma, left rib pain. COMPARISON: Comparison is made with a prior study from December 09, 2016. TECHNIQUE: Dual-energy PA and lateral views of the chest were obtained. FINDINGS: The heart is within normal limits in size. Mediastinal and hilar contours appear within normal limits. The lungs are clear. No pleural effusion or pneumothorax is seen. IMPRESSION: NO EVIDENCE FOR ACTIVE CARDIOPULMONARY DISEASE.
[2017-01-09] MEDS ORDERED: Morphine INJ* 10 MG/ML 1 ML SYRINGE IM ONE (15:43)
[2017-01-09] MEDS ORDERED: Ketorolac INJ* 60 MG/2 ML VIAL IM ONE (17:02)
[2017-01-09] MEDS ORDERED: Iohexol 300* (CONTRAST) 10 ML SDV IV ONE (17:09)
--- NOTE | 2017-01-09 17:54 | RAD ---
INDICATION: Trauma, left-sided pain. COMPARISON: Comparison is made with a prior chest x-ray and rib series of the same day. TECHNIQUE: A CT scan of the chest was performed with intravenous contrast following intravenous injection of 80 ml of Omnipaque 300 nonionic contrast. Contiguous axial sections were obtained from the lung apices through the lung bases. Images were reconstructed in the coronal and sagittal planes. FINDINGS: The lungs are clear. No pleural effusion or pneumothorax is seen. No significant enlarged mediastinal or hilar lymph nodes are seen. Images of the upper abdomen are within normal limits. The heart is within normal limits in size. No pericardial effusion is present. The thoracic aorta is normal in caliber. No significant focal osseous abnormality is seen. IMPRESSION: NO EVIDENCE FOR ACUTE FINDING.
[2017-01-09 18:39] VITALS: BP 133/99
[2017-01-09] MEDS ORDERED: oxyCODONE/Acetamin 5/325 MG* TAB ONE (19:50)
[2017-01-09] MEDS ORDERED: oxyCODONE/Acetamin 5/325 MG* TAB PO SCH (20:00)
--- NOTE | 2017-01-09 22:39 | CONS ---
CONSULTATION REPORT: DATE OF CONSULT: 01/09/17 PRIMARY CARE PROVIDER: None. ATTENDING PHYSICIAN: Dr. Zaki Fam (dictated by Fidelia Callahan NP). PHYSICIAN REQUESTING CONSULT: Dr. Too Snyder. REASON FOR CONSULT: Left chest wall discomfort. HISTORY OF PRESENT ILLNESS: Mr. James is a 36-year-old male with past medical history significant for depression, who approximately 9 days ago was working at his job, when he was using a wrench and using "his chest" to apply more leverage and he felt a pop in his left arm. The patient denies actually having a trauma to the arm such as hitting it with the wrench. The patient had been seen at [facility] approximately 4 days ago, at which time he was diagnosed with a left arm strain. The patient has limited range of motion and worsening pain. The patient was prescribed Percocet and had been taking 2 tablets 4 times daily in addition to 400 mg of ibuprofen 2 to 3 times daily. The patient noted that his pain was worse with movement, but overall had not really found any alleviating treatments for his discomfort. He noticed over the last few days that he has developed some left chest wall swelling and tenderness to the touch. The patient decided to present to the emergency room for further evaluation of his symptoms where he has received Toradol and Percocet in addition to morphine. The patient reports some relief with the IM Toradol that he received. The patient denies any fever, chills. He reports shortness of breath with deep inspiration with pain on the left side. He denies nausea, vomiting, or urinary symptoms. PAST MEDICAL HISTORY: Depression. PAST SURGICAL HISTORY: Status post hernia repair at age 14. HOME MEDICATIONS: Include: 1. Ibuprofen 400 mg oral every 8 hours as needed for pain. 2. Vyvanse 70 mg oral daily. ALLERGIES: No known drug allergies. FAMILY HISTORY: The patient's father had an NH at age 55. The patient's father and sister have history of diabetes mellitus. The patient had a maternal aunt with a history of liver cancer. SOCIAL HISTORY: The patient is a current smoker, smoking 1-1/2 packs a day for the last 20 years. He rarely drinks alcohol. He denies recreational drug use. 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 His mother, Kelsea Jain, would be his surrogate decision maker in the event that he is unable to make decisions for himself. REVIEW OF SYSTEMS: I performed a 14-point review of systems. All the pertinent positives and negatives are mentioned in the history of present illness. The remaining review of systems is negative. PHYSICAL EXAM: Vital Signs: Temperature 97.8, heart rate 88, respiratory rate 16, O2 sat 100% on room air, blood pressure 129/92. Appearance: The patient appears to be alert, in no acute distress. HEENT: Normocephalic, atraumatic. Pupils are equal and reactive to light. Extraocular movements are intact. Cardiovascular: Regular rate and rhythm. S1 and S2 present. There are no murmurs, rubs, or gallops. Respiratory: There is no accessory muscle use and the lungs are clear to auscultation bilateral. Abdomen: Soft, nontender, nondistended. The bowel sounds are present x4. Extremities: There is no lower extremity edema. DP and PT pulses are 2+ and symmetric. Musculoskeletal : There is no clubbing or cyanosis noted. The patient exhibits good strength in all extremities. The patient does have tenderness to his left lateral chest into his axillary area. The patient has mild swelling in that area. Skin: The patient has no rashes or abnormalities noted. Neurological: Cranial nerves II through XII are grossly intact. The patient is able to move all extremities. Psychological: The patient is calm and cooperative. DIAGNOSTIC STUDIES: 1. Chest x-ray from today. Radiologist's impression: No evidence for acute cardiopulmonary disease. 2. Left rib x-ray from today. Radiologist's impression: No evidence for fracture. 3. Chest CT from today. Radiologist's impression: No evidence for acute findings. IMPRESSION: Mr. James is a 36-year-old male with past medical history significant for depression, who presents to the emergency room with left chest wall pain and swelling. Hospitalists were asked to consult on this patient while he was in the emergency room. ASSESSMENT/PLAN: 1. Left chest wall strain. There were no signs on the chest x-ray, left rib x - ray, or chest CT of acute findings or fractures. The patient does have some tenderness in his left pectoral muscle and into his axillary area. I suspect this represents a muscle strain. The patient has been encouraged to rest his arm and take Motrin 600 mg oral every 6 hours around the clock to help with inflammation. The patient also has been encouraged to use ice and I recommend prescribing him as needed stronger pain medications. The patient has been encouraged though to use the Motrin and only other medication as needed. The patient should follow up with the primary care provider and if he continues to have discomfort, may benefit from seeing an orthopedic surgeon. 2. Fluids, electrolytes, and nutrition. The patient should be on a regular diet. 3. Code status. Full code. 4. DVT prophylaxis. The patient is being discharged home and would be ambulating. 5. Disposition. I recommend the patient be discharged from the emergency room with followup with his primary care provider this week. TIME SPENT: The time for this consultation was 45 minutes, greater than half of that was spent with the patient discussing medications, past medical history , and the events leading up to his arrival today and performing a physical examination. The case has been reviewed with the attending doctor, Dr. Fam, who agrees with the plan of care. reviewed by GRAHAM HASSAN 01/12/17 1350 [id number]/[facility] #: [id number] MODE
--- NOTE | 2017-01-10 16:57 | ED ---
Pearl Aguillon Alok, scribed for Too Snyder MD on 01/09/17 at 1339 . HPI Chest Pain - HPI Summary HPI Summary: 36M presents to the ED with left sided chest pain since last week. Pt states that he was tightening a bolt on a machine at his work when he felt a snap in his chest muscle. The patients states that initially his chest was not in much pain but that his pain has been steadily worsening since. Currently he describes his CP as sharp. Pt has been taking ibuprofen to manage pain with no effect, last taking this morning. Pt states his CP is worsened by deep breaths. Pt denies taking any other regular medications. - History of Current Complaint Chief Complaint: EDChestWallPain Time Seen by Provider: 01/09/17 13:31 Hx Obtained From: Patient Onset/Duration: Started Days Ago, Traumatic, Still Present Initial Severity: Mild Current Severity: Moderate Pain Intensity: 10 Pain Scale Used: 0-10 Numeric Chest Pain Location: Discrete at:, Left Anterior Character: Sharp/Stabbing Aggravating Factor(s): Deep Breaths Alleviating Factor(s): Nothing Associated Signs and Symptoms: Positive: Chest Pain - Allergy/Home Medications Allergies/Adverse Reactions: Allergies Allergy/AdvReac Type Severity Reaction Status Date / Time No Known Allergies Allergy Verified 01/09/17 13:42 PMH/Surg Hx/FS Hx/Imm Hx Endocrine/Hematology History: Denies: Hx Diabetes, Hx Thyroid Disease Cardiovascular History: Denies: Hx Hypertension Respiratory History: Denies: Hx Asthma, Hx Chronic Obstructive Pulmonary Disease (COPD) GI History: Denies: Hx Ulcer Psychiatric History: Reports: Hx Depression Denies: Hx Anxiety, Hx Schizophrenia, Hx Bipolar Disorder - Surgical History Surgery Procedure, Year, and Place: -1994 Infectious Disease History: Denies: Hx Clostridium Difficile, Hx Hepatitis, Hx Human Immunodeficiency Virus (HIV), Hx of Known/Suspected MRSA, Hx Shingles, Hx Tuberculosis, Hx Known/ Suspected VRE, Hx Known/Suspected VRSA, History Other Infectious Disease, Traveled Outside the [place] in Last 30 Days - Family History Known Family History: Positive: Cardiac Disease - Father [place] age 55 , Diabetes Negative: Hypertension - Social History Occupation: Employed Full-time Alcohol Use: None Hx Substance Use: No Substance Use Type: Reports: None Hx Tobacco Use: Yes Smoking Status (MU): Heavy Every Day Tobacco Smoker Amount Used/How Often: 1 1/2ppd Review of Systems Negative: Fever Positive: Chest Pain All Other Systems Reviewed And Are Negative: Yes Physical Exam Triage Information Reviewed: Yes Vital Signs On Initial Exam: Initial Vitals Temp Pulse Resp BP Pulse Ox 97.8 F 84 17 133/88 100 01/09/17 13:12 01/09/17 13:12 01/09/17 13:12 01/09/17 13:12 01/09/17 13:12 Vital Signs Reviewed: Yes Appearance: Positive: Well-Appearing, No Pain Distress Skin: Positive: Warm, Skin Color Reflects Adequate Perfusion, Dry Head/Face: Positive: Normal Head/Face Inspection Eyes: Positive: Normal ENT: Positive: Normal ENT inspection Neck: Positive: Supple, Nontender Respiratory/Lung Sounds: Positive: Clear to Auscultation, Breath Sounds Present Cardiovascular: Positive: RRR Abdomen Description: Positive: Nontender, Soft Bowel Sounds: Positive: Present Musculoskeletal: Positive: Other - Tenderness left parasternal area Neurological: Positive: Normal Psychiatric: Positive: Normal, Affect/Mood Appropriate Diagnostics - Vital Signs Vital Signs Temp Pulse Resp BP Pulse Ox 01/09/17 13:12 97.8 F 84 17 133/88 100 - Laboratory Lab Statement: Any lab studies that have been ordered have been reviewed, and results considered in the medical decision making process. - Radiology CXR Xray Interpretation: Positive (See Comments) - IMPRESSION: NO EVIDENCE FOR ACUTE CARDIOPULMONARY DISEASE. Radiology Interpretation Completed By: Radiologist Ribs XRAY Xray Interpretation: Positive (See Comments) - IMPRESSION: NO EVIDENCE FOR FRACTURE Radiology Interpretation Completed By: Radiologist - CT Chest CT CT Interpretation: Positive (See Comments) - IMPRESSION: NO EVIDENCE FOR ACUTE FINDING CT Interpretation Completed By: Radiologist Chest Pain Course/Dx - Course Course Of Treatment: Mr. James presented with the history of feeliing a pop in his left anterior chest while tightening a bolt a week ago. He didn't have much pain then but it gradually increased to the point where it is now severe. He reported taking ibuprofen on my initial evaluation. He had tenderness at his left parasternal border without deformity. He reported swelling but I could not appreciate any. I ordered a percocet for him for pain and a CXR which was negative. He reported no relief from the percocet at all and I ordered an IM dose of morphine. A check of the I-STOP revealed that he had filled a prescription for percocet 4 days prior onn the . I asked him again what he was taking for pain and he reported only ibuprofen. When I asked about the percocet he then admitted he had been to [place] [facility] for this pain on the and had been given a script for percocet but had not filled it. This of course was also not true per the website. He reported transient relief from the morphine. At this point I was unclear whether I was simply dealing with a chest wall/musculoskeletal pain or something worse or whether he had any pain at all. A urine had not been obtained as I did not suspect any problems prior to giving narcotics. I ordered a CT with contrast to R/O anything I might have missed and it was also negative. He ultimately confessed to filling the script of percocet and taking them all because "they didn't help at all". I asked the hopitalist to consult to make sure I was not missing anything or to consider OBV for intractable pain and they agreed that that was not indicated. He wanted a prescription at [facility] but at that point I could not believe his history and if, in fact, he had taken the percocet and it did not help at all then more would not be indicated. I recommended ibuprofen for now. He may need a neuropathic pain medication if not improving. - Diagnoses Provider Diagnoses: Chest wall pain Discharge - Discharge Plan Condition: Stable Disposition: HOME Patient Education Materials: Chest Wall Pain (ED) Referrals: [facility] [Outside] No Primary Care Phys,NOPCP [Primary Care Provider] - Additional Instructions: Please follow up with your primary care provider The documentation as recorded by the Pearl millard Alok accurately reflects the service I personally performed and the decisions made by me, Too Snyder MD.
== END 2017-01-09 19:54 | disposition home or self-care (01) ==
LOC: ED 13:06
DX: R07.89 Other chest pain (principal); F17.210 Nicotine dependence, cigarettes, uncomplicated
CPT/HCPCS: 71020; 71260; 96372; 99283; A9270-GY; J1885; J2270; Q9967

== ENCOUNTER 2017-09-06 15:04 | Emergency (ER) | payer MEDICARE, MEDICAID ==
[2017-09-06 15:44] VITALS: BP 114/80
[2017-09-06] MEDS ORDERED: Ketorolac INJ* 60 MG/2 ML VIAL IM ONE (16:40)
--- NOTE | 2017-09-06 16:50 | UC ---
Dental HPI - HPI Summary HPI Summary: WAS EATING [employer]ICK[employer]ERS TODAY WHEN HIS RIGHT UPPER 1ST PREMOLAR BROKE. PAIN IS SEVERE. IS A PT AT [facility] RIGHT NOW AND [facility] IS COMING ON TUESDAY. PT WAS ADVISED TO COME HERE TO BE SEEN FOR POTENTIAL INFECTION AND PAIN. - History of Current Complaint Chief Complaint: UCGeneralIllness Stated Complaint: TOOTH ACHE Time Seen by Provider: 09/06/17 16:21 Hx Obtained From: Patient Onset/Duration: Sudden Onset, Lasting Hours, Still Present Severity: Severe Pain Intensity: 10 Pain Scale Used: 0-10 Numeric Aggravating Factor(s): Heat, Cold, Chewing Alleviating Factor(s): Nothing - Allergies/Home Medications Allergies/Adverse Reactions: Allergies Allergy/AdvReac Type Severity Reaction Status Date / Time No Known Allergies Allergy Verified 01/09/17 13:42 Home Medications: Home Medications Fluoxetine HCl [Prozac] 20 mg PO 09/06/17 [History] Gabapentin [Neurontin 800 mg tab] 800 mg 09/06/17 [History] buPROPion HCl [Wellbutrin Sr] 09/06/17 [History Confirmed 09/06/17] PMH/Surg Hx/FS Hx/Imm Hx Previously Healthy: Yes - Surgical History Surgical History: None Surgery Procedure, Year, and Place: hernia-1994 - Family History Known Family History: Positive: Cardiac Disease - Father [place] age 55 , Diabetes Negative: Hypertension - Social History Alcohol Use: None Substance Use Type: None Smoking Status (MU): Heavy Every Day Tobacco Smoker Amount Used/How Often: 1 1/2ppd - Immunization History Most Recent Influenza Vaccination: may 2016 Review of Systems Constitutional: Negative ENT: Dental Pain Respiratory: Negative Cardiovascular: Negative Gastrointestinal: Negative All Other Systems Reviewed And Are Negative: Yes Physical Exam Triage Information Reviewed: Yes Appearance: Well-Appearing, No Pain Distress, Well-Nourished Vital Signs: Initial Vital Signs Temp 97.8 F 09/06/17 15:38 Pulse 88 09/06/17 15:38 Resp 16 09/06/17 15:38 BP 114/80 09/06/17 15:38 Pulse Ox 97 09/06/17 15:38 Vital Signs Reviewed: Yes Eyes: Positive: Conjunctiva Clear ENT: Positive: Hearing grossly normal, Pharynx normal Dental: Positive: Gross Decay/Caries @, Dental Fracture @ - RIGHT UPPER 1ST PREMOLAR. Negative: Abscess @, Cellulitis @, Cervical Lymphadenopathy Neck: Positive: Supple, Nontender, No Lymphadenopathy Respiratory: Positive: No respiratory distress, No accessory muscle use Cardiovascular: Positive: Pulses Normal Abdomen Description: Positive: Soft Musculoskeletal: Positive: No Edema Neurological: Positive: Alert Psychological: Positive: Age Appropriate Behavior Skin: Negative: rashes Dental Complaint Course/Dx - Course Course Of Treatment: WILL PROPHYLAX WITH ABX AND GIVE PERIDEX AND IBUPROFEN. ADVISED TO SEE DENTIST THIS TUESDAY PLANNED. - Differential Dx/Diagnosis Provider Diagnoses: DENTAL DECAY/FRACTURE Discharge - Discharge Plan Condition: Stable Disposition: HOME Prescriptions: Amoxicillin/Clavulanate TAB* [Augmentin TAB 875*] 875 mg PO BID #10 tab Chlorhexidine MW 0.12% 473ML* [Peridex Mouth Wash 0.12%*] 15 ml SWISH SPIT BID # 1 bottle Ibuprofen TAB* [Motrin TAB* 800 MG] 800 mg PO Q8H PRN #30 tab PRN Reason: Pain Patient Education Materials: Acute Dental Trauma (ED), Toothache (ED) Referrals: No Primary Care Phys,NOPCP [Primary Care Provider] - Additional Instructions: TAKE THE ANTIBIOTIC AND USE THE MOUTH RINSE TWICE DAILY TO PREVENT INFECTION. IBUPROFEN NEEDED FOR DISCOMFORT. TORADOL BY INJECTION GIVEN TODAY. RINSE YOUR MOUTH WITH WATER AFTER EATING. FOLLOW-UP WITH THE DENTIST ON TUESDAY PLANNED.
== END 2017-09-06 16:55 | disposition home or self-care (01) ==
LOC: UCEAST 15:04
DX: K03.81 Cracked tooth (principal); K02.9 Dental caries, unspecified; F17.210 Nicotine dependence, cigarettes, uncomplicated
CPT/HCPCS: 96372; 99212; G0463; J1885

== ENCOUNTER 2017-10-07 14:40 | Emergency (ER) | payer MEDICARE, MEDICAID ==
[2017-10-07] MEDS ORDERED: Penicillin VK 500 MG TAB(NF) PO ONE (15:38)
--- NOTE | 2017-10-07 15:42 | ED ---
Damion Aguillon Julia, scribed for Kezia Ramirez MD on 10/07/17 at 1540 . Throat Pain/Nasal Congestion - HPI Summary HPI Summary: This patient is a 36 year old M presenting to [facility] with a chief complaint of dental pain for the past few months worsening last night when a couple pieces fell off. The patient rates the pain 10/10 in severity. No analgesia taken. 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 No ETOH. Patient has hx of dental infections and states Penicillin has helped in the past. Pt has appt next Tuesday with a dentist. Pt denies facial swelling. mild right ear pain. He states he has an appointment with a dentist through [facility]. Pt's medications reviewed this visit - History of Current Complaint Chief Complaint: EDDentalPain Time Seen by Provider: 10/07/17 15:29 Hx Obtained From: Patient Onset/Duration: Lasting Weeks, Worse Since - last night Severity: Worse Since: - last night Related History: Other (Noted In Comments) - dental infections - Allergies/Home Medications Allergies/Adverse Reactions: Allergies Allergy/AdvReac Type Severity Reaction Status Date / Time No Known Allergies Allergy Verified 10/07/17 14:44 Home Medications: Home Medications FLUoxetine CAP* [PROzac CAP*] 40 mg PO DAILY 10/07/17 [History Confirmed ] Lisdexamfetamine Dimesylate [Vyvanse] 70 mg PO DAILY 10/07/17 [History Confirmed 10/07/17] PMH/Surg Hx/FS Hx/Imm Hx Previously Healthy: Yes Endocrine/Hematology History: Denies: Hx Diabetes, Hx Thyroid Disease Cardiovascular History: Denies: Hx Hypertension Respiratory History: Denies: Hx Asthma, Hx Chronic Obstructive Pulmonary Disease (COPD) GI History: Denies: Hx Ulcer Psychiatric History: Reports: Hx Depression Denies: Hx Anxiety, Hx Schizophrenia, Hx Bipolar Disorder - Surgical History Surgery Procedure, Year, and Place: -1994 Infectious Disease History: No Infectious Disease History: Denies: Hx Clostridium Difficile, Hx Hepatitis, Hx Human Immunodeficiency Virus (HIV), Hx of Known/Suspected MRSA, Hx Shingles, Hx Tuberculosis, Hx Known/ Suspected VRE, Hx Known/Suspected VRSA, History Other Infectious Disease, Traveled Outside the [place] in Last 30 Days - Family History Known Family History: Positive: Cardiac Disease - Father [place] age 55 , Diabetes Negative: Hypertension - Social History Occupation: Unemployed Lives: [facility] - [facility] Alcohol Use: None Hx Substance Use: Yes - 2 days sober 10/07/17 - just got into [facility] Substance Use Type: Reports: Cocaine, Heroin - opiates, Marijuana, Synthetic Drugs Hx Tobacco Use: Yes Smoking Status (MU): Heavy Every Day Tobacco Smoker Amount Used/How Often: 1 1/2ppd Review of Systems Negative: Fever Positive: Dental Pain All Other Systems Reviewed And Are Negative: Yes Physical Exam Triage Information Reviewed: Yes Vital Signs On Initial Exam: Initial Vitals Temp Pulse Resp BP Pulse Ox 97.7 F 87 14 130/85 99 10/07/17 14:42 10/07/17 14:42 10/07/17 14:42 10/07/17 14:42 10/07/17 14:42 Vital Signs Reviewed: Yes Appearance: Positive: Well-Appearing, No Pain Distress, Well-Nourished Skin: Positive: Warm, Skin Color Reflects Adequate Perfusion, Dry Head/Face: Positive: Normal Head/Face Inspection Eyes: Positive: Normal, EOMI, MARCUS ENT: Positive: Normal ENT inspection, Hearing grossly normal, Pharynx normal, TMs normal Dental: Positive: Other - Pt with multiple caries #6 tooth large cavity and brokem + TTP at buccal gumline. no bleeding, no fluctuance Neck: Positive: Supple, Nontender, No Lymphadenopathy Respiratory/Lung Sounds: Positive: Clear to Auscultation, Breath Sounds Present , Decreased Breath Sounds Cardiovascular: Positive: Normal, RRR, Pulses are Symmetrical in both Upper and Lower Extremities Abdomen Description: Positive: Nontender, No Organomegaly, Soft Bowel Sounds: Positive: Present Musculoskeletal: Positive: Normal Neurological: Positive: Normal, Sensory/Motor Intact, Alert, Oriented to Person Place, Time Psychiatric: Positive: Normal AVPU Assessment: Alert - [place] Coma Scale Best Eye Response: 4 - Spontaneous Best Motor Response: 6 - Obeys Commands Best Verbal Response: 5 - Oriented Coma Scale Total: 15 Diagnostics - Vital Signs Vital Signs Temp Pulse Resp BP Pulse Ox 10/07/17 14:42 97.7 F 87 14 130/85 99 - Laboratory Lab Statement: Any lab studies that have been ordered have been reviewed, and results considered in the medical decision making process. EENT Course/Dx - Course Course Of Treatment: Pt presents with progressive dental pain. Pt with multiple cavities. Pt with pain #6 - broken at gumline. No bleeding, no fluctuance. Will start PCN. motrin/apap. ice on face. return precautions discussed. Pt has appt with dental - Diagnoses Provider Diagnoses: Pain, dental Discharge - Sign-Out/Discharge Documenting (check all that apply): Discharge - Discharge Plan Condition: Stable Disposition: HOME Prescriptions: Penicillin VK 500 MG TAB(NF) [Penicillin VK 500 mg Tab] 500 mg PO TID #21 tab Patient Education Materials: Toothache (ED) Referrals: No Primary Care Phys,NOPCP [Primary Care Provider] - Additional Instructions: - Swish and spit warm, salt water 2-3 times a day - Okay to alternate ibuprofen (Advil, Motrin) 600mg and tylenol every 3hours for pain. Take with food. Do NOT take for more than 4-5 days - Take Penicilln as prescribed - apply ice (wrapped in a towel) 20 minutes at time, 2-3 times a day - Keep your dental appointment as scheduled next week - Billing Disposition and Condition Condition: STABLE Disposition: HOME The documentation as recorded by the Damion millard Julia accurately reflects the service I personally performed and the decisions made by , Kezia Ramirez MD.
[2017-10-07] MEDS ORDERED: Penicillin VK TAB* 250 MG PO ONE (16:00)
[2017-10-07 16:03] VITALS: BP 136/93
== END 2017-10-07 16:01 | disposition home or self-care (01) ==
LOC: ED 14:40
DX: K08.89 Other specified disorders of teeth and supporting structures (principal); F17.210 Nicotine dependence, cigarettes, uncomplicated
CPT/HCPCS: 99282; A9270-GY

== ENCOUNTER 2018-05-23 22:37 | Emergency (ER) | payer MEDICARE, MEDICAID ==
--- NOTE | 2018-05-23 23:18 | ED ---
Laceration/Wound HPI - HPI Summary HPI Summary: 37 year male presents with a right hand laceration today. He states he cut doing dishes today. He denies any foreign body in the wound. There is no actively bleeding. No numbness or tingling. Has full range motion his fingers. Tetanus up-to-date. He is not diabetic. - History of Current Complaint Stated Complaint: RT HAND LAC Time Seen by Provider: 05/23/18 22:41 Pain Intensity: 0 - Allergy/Home Medications Allergies/Adverse Reactions: Allergies Allergy/AdvReac Type Severity Reaction Status Date / Time No Known Allergies Allergy Verified 10/07/17 14:44 PMH/Surg Hx/FS Hx/Imm Hx Endocrine/Hematology History: Denies: Hx Diabetes, Hx Thyroid Disease Cardiovascular History: Denies: Hx Hypertension Respiratory History: Denies: Hx Asthma, Hx Chronic Obstructive Pulmonary Disease (COPD) GI History: Denies: Hx Ulcer Psychiatric History: Reports: Hx Depression Denies: Hx Anxiety, Hx Schizophrenia, Hx Bipolar Disorder - Surgical History Surgery Procedure, Year, and Place: -1994 Infectious Disease History: No Infectious Disease History: Denies: Hx Clostridium Difficile, Hx Hepatitis, Hx Human Immunodeficiency Virus (HIV), Hx of Known/Suspected MRSA, Hx Shingles, Hx Tuberculosis, Hx Known/ Suspected VRE, Hx Known/Suspected VRSA, History Other Infectious Disease, Traveled Outside the [place] in Last 30 Days - Family History Known Family History: Positive: Cardiac Disease - Father [place] age 55 , Diabetes Negative: Hypertension - Social History Alcohol Use: None Hx Substance Use: Yes - 2 days sober 10/07/17 - just got into [facility] Substance Use Type: Reports: Cocaine, Heroin, Marijuana, Synthetic Drugs Hx Tobacco Use: Yes Smoking Status (MU): Heavy Every Day Tobacco Smoker Amount Used/How Often: 1 1/2ppd Review of Systems Negative: Fever Negative: Chest Pain Negative: Shortness Of Breath Positive: Other - right pinky finger laceration All Other Systems Reviewed And Are Negative: Yes Physical Exam Triage Information Reviewed: Yes Vital Signs On Initial Exam: Initial Vitals Temp Pulse Resp BP Pulse Ox 98.6 F 105 18 133/82 100 05/23/18 22:41 05/23/18 22:41 05/23/18 22:41 05/23/18 22:41 05/23/18 22:41 Vital Signs Reviewed: Yes Appearance: Positive: Well-Appearing Skin: Positive: Other - 2cm by 1/2cm in webbing between right 4-5th finger Head/Face: Positive: Normal Head/Face Inspection Eyes: Positive: Normal, Conjunctiva Clear ENT: Positive: Pharynx normal Respiratory/Lung Sounds: Positive: Clear to Auscultation, Breath Sounds Present Cardiovascular: Positive: Normal, RRR Musculoskeletal: Positive: Normal Neurological: Positive: Normal Psychiatric: Positive: Normal Procedures - Laceration/Wound Repair 1 Location: Other - right hand Description: Irregular Anesthesia: Local, 1.0% Length, Depth and Shape: 2cm by 1/2cm Irrigated w/ Saline (ccs): 200 Suture Type: Prolene Number of Sutures: 3 Diagnostics - Vital Signs Vital Signs Temp Pulse Resp BP Pulse Ox 05/23/18 22:41 98.6 F 105 18 133/82 100 - Laboratory Lab Statement: Any lab studies that have been ordered have been reviewed, and results considered in the medical decision making process. Laceration Repair Course/Dx - Course Course Of Treatment: 37 year male presents with a right hand laceration today. He states he cut doing dishes today. He denies any foreign body in the wound. There is no actively bleeding. No numbness or tingling. Has full range motion his fingers. Tetanus up-to-date. He is not diabetic. On exam has 2 cm laceration in between the webbing of the fourth and fifth finger of the right hand. Clean area and place 3 sutures. Told to keep the area clean and dry. Patient understands agrees with plan. - Differential Dx Differental Diagnoses: Abrasion, Avulsion, Laceration - Clinical Impression Provider Diagnoses: Laceration of right hand Discharge - Sign-Out/Discharge Documenting (check all that apply): Patient Departure - Discharge Plan Condition: Good Disposition: HOME Patient Education Materials: Care For Your Stitches (ED) Referrals: No Primary Care Phys,NOPCP [Primary Care Provider] - Additional Instructions: Take Tylenol or ibuprofen for pain every 6 hours as needed Keep area clean and dry for 24 hours Return to ED or primary in 8-10 days to have sutures removed Return to ED if develop signs of infection such as fever, spreading redness, or pus. - Billing Disposition and Condition Condition: GOOD Disposition: Home
[2018-05-23 23:28] VITALS: BP 121/74
== END 2018-05-23 23:28 | disposition home or self-care (01) ==
LOC: ED 22:37
DX: S61.411A Laceration without foreign body of right hand, initial encounter (principal); W26.9XXA Contact with unspecified sharp object(s), initial encounter; Y93.G1 Activity, food preparation and clean up; Y92.9 Unspecified place or not applicable; F17.200 Nicotine dependence, unspecified, uncomplicated
CPT/HCPCS: 12001; 99282

== ENCOUNTER 2018-11-23 00:08 | Emergency (ER) | payer MEDICARE, MEDICAID ==
[2018-11-23] MEDS ORDERED: NS 0.9% 1000 ML** 1,000 ML IV ONE (00:24)
--- NOTE | 2018-11-23 00:28 | ED ---
Substance Abuse/Use - HPI Summary HPI Summary: A 37 y/o male brought in by [facility] ambulance presents to [facility] with a chief complaint of a potential overdose today. Per EMS, the patient was found at his [facility] being unresponsive, and being difficult to arouse. He was given two rounds of Narcan spray. He has been alert but then would reportedly pass out "when given thirty seconds to himself". He is on Prozac and Wellbutrin. The patient is reluctant and uncooperative and keeps changing his story. He says that he was at the [facility] for two days and doesn't want to mention his girlfriend's name or the name of the substance he took. He is belligerent. He claims that the substance he took was something to "give him energy". When asked why he keeps passing out he keeps changing his answer, saying that he likes the bed or that he hasn't slept in three days, or claiming that he has been stressed. He also thought that it was 2016, but was able to correctly say that Cristian Jurado is president and the month is November. - History Of Current Complaint Chief Complaint: EDOverdose Stated Complaint: LETHARGIC/AMS PER EMS Hx Obtained From: Patient, EMS Onset/Duration of Drug/ETOH Abuse: Hours - unknown Ingestion History: Type/Name Of Drug - unknown, Amount Ingested - unknown, Approximate Time Of Ingestion - unknown Overdose Characteristics: Other - unknown Timing Of Abuse: Binge Use - unknown Severity Initially: Mild Severity Currently: Mild Character: Lethargic Aggravating Factor(s): Nothing Alleviating Factor(s): Nothing Associated Signs And Symptoms: Hostile - Allergies/Home Medications Allergies/Adverse Reactions: Allergies Allergy/AdvReac Type Severity Reaction Status Date / Time No Known Allergies Allergy Verified 10/07/17 14:44 PMH/Surg Hx/FS Hx/Imm Hx Endocrine/Hematology History: Denies: Hx Diabetes, Hx Thyroid Disease Cardiovascular History: Denies: Hx Hypertension Respiratory History: Denies: Hx Asthma, Hx Chronic Obstructive Pulmonary Disease (COPD) GI History: Denies: Hx Ulcer Psychiatric History: Reports: Hx Depression Denies: Hx Anxiety, Hx Schizophrenia, Hx Bipolar Disorder - Surgical History Surgery Procedure, Year, and Place: -1994 Infectious Disease History: No Infectious Disease History: Denies: Hx Clostridium Difficile, Hx Hepatitis, Hx Human Immunodeficiency Virus (HIV), Hx of Known/Suspected MRSA, Hx Shingles, Hx Tuberculosis, Hx Known/ Suspected VRE, Hx Known/Suspected VRSA, History Other Infectious Disease, Traveled Outside the [place] in Last 30 Days - Family History Known Family History: Positive: Cardiac Disease - Father [place] age 55 , Diabetes Negative: Hypertension - Social History Alcohol Use: None Hx Substance Use: Yes - 2 days sober 10/07/17 - just got into CARS Substance Use Type: Reports: Cocaine, Heroin, Marijuana, Synthetic Drugs Hx Tobacco Use: Yes Smoking Status (MU): Heavy Every Day Tobacco Smoker Amount Used/How Often: 1 1/2ppd Review of Systems Negative: Fever Positive: Other - positive: substance abuse, acting belligerent All Other Systems Reviewed And Are Negative: Yes Physical Exam - Summary Physical Exam Summary: VITAL SIGNS: Reviewed. GENERAL: Patient is a well-developed and nourished MALE who is lying comfortable in the stretcher. Patient is not in any acute respiratory distress. HEAD AND FACE: No signs of trauma. No ecchymosis, hematomas or skull depressions. No sinus tenderness. EYES: PERRLA, EOMI x 2, No injected conjunctiva, no nystagmus. EARS: Hearing grossly intact. Ear canals and tympanic membranes are within normal limits. MOUTH: Oropharynx within normal limits. NECK: Supple, trachea is midline, no adenopathy, no JVD, no carotid bruit, no c- spine tenderness, neck with full ROM CHEST: Symmetric, no tenderness at palpation LUNGS: Clear to auscultation bilaterally. No wheezing or crackles. CVS: Regular rate and rhythm, S1 and S2 present, no murmurs or gallops appreciated. ABDOMEN: Soft, non-tender. No signs of distention. No rebound no guarding, and no masses palpated. Bowel sounds are normal. EXTREMITIES: FROM in all major joints, no edema, no cyanosis or clubbing. NEURO: Alert and oriented x 3. No acute neurological deficits. Speech is normal and follows commands. SKIN: Dry and warm Triage Information Reviewed: Yes Vital Signs On Initial Exam: Initial Vitals Temp Pulse Resp BP Pulse Ox 98.7 F 96 20 122/73 96 11/23/18 00:11 11/23/18 00:11 11/23/18 00:11 11/23/18 00:11 11/23/18 00:11 Vital Signs Reviewed: Yes - [place] Coma Scale Best Eye Response: 4 - Spontaneous Best Motor Response: 6 - Obeys Commands Best Verbal Response: 5 - Oriented Coma Scale Total: 15 Diagnostics - Vital Signs Vital Signs Temp Pulse Resp BP Pulse Ox 11/23/18 00:11 98.7 F 96 20 122/73 96 - Laboratory Result Diagrams: 11/23/18 01:38 11/23/18 01:38 Lab Statement: Any lab studies that have been ordered have been reviewed, and results considered in the medical decision making process. - CT Brain CT Interpretation Completed By: Radiologist Summary of CT Findings: No acute intracranial abnormality. ED physician has reviewed this imaging report. - EKG 00:35 Cardiac Rate: NL - 92 bpm EKG Rhythm: Sinus Rhythm Summary of EKG Findings: NSR at 92 bpm, Normal axis. Normal interval. No ischemic changes. Course/Dx - Course Course Of Treatment: A 37 y/o male brought in by [facility] ambulance presents to [facility] with a chief complaint of a potential overdose today. Per EMS, the patient was found at his [facility] being unresponsive, and being difficult to arouse. He was given two rounds of Narcan spray. He has been alert but then would reportedly pass out "when given thirty seconds to himself". The patient is reluctant and uncooperative and keeps changing story. He does not want to mention the drug that he has taken and does not want to mention his girlfriend' s name. The physical exam was unremarkable. GCS 15. In the ED course the patient was given sodium chloride IV. EKG showed NSR at 92 bpm, Normal axis. Normal interval. No ischemic changes. Brain CT impression: No acute intracranial abnormality. Bloodwork, chemistries, urines and toxicology obtained. Amphetamines, cocaine and cannabinoids presumptive positive. The patient will be discharged and follow up with his PCP. He is agreeable with this plan. - Diagnoses Provider Diagnoses: Substance abuse Discharge - Sign-Out/Discharge Documenting (check all that apply): Patient Departure - DC Patient Received Moderate/Deep Sedation with Procedure: No - Discharge Plan Condition: Stable Disposition: HOME Referrals: Sona Jang MD [Medical Doctor] - (2-3 days) Additional Instructions: PLEASE RETURN TO THE ED IMMEDIATELY FOR WORSENING OR CONCERNING SYMPTOMS. - Billing Disposition and Condition Condition: STABLE Disposition: Home - Attestation Statements Document Initiated by Scribe: Yes Documenting Scribe: Jacob Vigil Provider For Whom Scribe is Documenting (Include Credential): Chelsie Ott MD Scribe Attestation: IJacob, scribed for Chelsie Ott MD on 11/23/18 at 1945. Scribe Documentation Reviewed: Yes Provider Attestation: The documentation as recorded by the Jacob millard accurately reflects the service I personally performed and the decisions made by meSade MD Status of Scribe Document: Viewed
[2018-11-23 01:48] LABS: ABS Basophils 0.1 10^3/ul (0-0.2); ABS Eosinophils 0.1 10^3/ul (0-0.6); ABS Lymphocytes 2.5 10^3/ul (1.0-4.8); ABS Monocytes 0.6 10^3/ul (0-0.8); ABS Neutrophils 5.6 10^3/ul (1.5-7.7); Eosinophil % 1.4 %; Hematocrit 38 % (42-52); Lymphocyte % 27.8 %; Mean Corpuscular HGB Conc 34 g/dL (31-36); Mean Corpuscular Hemoglobin 30 pg (27-31); Mean Corpuscular Volume 88 fL (80-94); Mean Platelet Volume 7.8 fL (7.4-10.4); Platelet Count 212 10^3/uL (150-450); Red Blood Count 4.33 10^6 /uL (4.18-5.48); Red Cell Distribution Width 13 % (10.5-15); White Blood Count 8.8 10^3/uL (3.5-10.8)
[2018-11-23 02:06] LABS: ALT 20 U/L (7-52); AST 27 U/L (13-39); Albumin 4.1 g/dL (3.2-5.2); Albumin/Globulin Ratio 1.6 (1-3); Alkaline Phosphatase 97 U/L (34-104); Anion Gap 7 mmol/L (2-11); Blood Urea Nitrogen 21 mg/dL (6-24); CO2 Carbon Dioxide 25 mmol/L (22-32); Chloride 110 mmol/L (101-111); Creatine Kinase 766 U/L (10-223); EGFR African American 101.2 (>60); EGFR Non-African American 83.6 (>60); Globulin 2.5 g/dL (2-4); Glucose 112 mg/dL (70-100); Potassium 3.4 mmol/L (3.5-5.0); Sodium 142 mmol/L (135-145); Total Protein 6.6 g/dL (6.4-8.9)
[2018-11-23 02:10] LABS: Acetaminophen < 15 mcg/mL; Alcohol < 10 mg/dL (<10); Salicylate < 2.50 mg/dL (<30)
[2018-11-23 02:26] LABS: Urine Appearance Clear; Urine Bacteria Absent (Absent); Urine Bilirubin Negative (Negative); Urine Blood Negative (Negative); Urine Color Yellow; Urine Glucose Negative (Negative); Urine Ketones Trace (Negative); Urine Nitrite Negative (Negative); Urine Protein 1+(30 mg/dL) (Negative); Urine Red Blood Cell Absent (Absent); Urine Specific Gravity 1.033 (1.010-1.030); Urine Urobilinogen Negative (Negative); Urine White Blood Cell Absent (Absent)
[2018-11-23 02:26] LABS: TSH (Thyroid Stimulating Horm) 1.34 mcIU/mL (0.34-5.60)
[2018-11-23 02:43] LABS: Urine Benzodiazepine Screen None Detected (None Detect); Urine Opiates Screen None Detected (None Detect)
[2018-11-23] MEDS ORDERED: Potassium Chlor TAB* 20 MEQ TAB.ER PO ONE (04:24)
[2018-11-23 04:44] VITALS: BP 121/76
== END 2018-11-23 04:43 | disposition home or self-care (01) ==
LOC: ED 00:08
DX: F19.129 Other psychoactive substance abuse with intoxication, unspecified (principal); F32.9 Major depressive disorder, single episode, unspecified; F17.210 Nicotine dependence, cigarettes, uncomplicated
CPT/HCPCS: 36415; 70450; 80053; 80307; 80320; 80329; 81003; 81015; 82550; 82803; 83605; 84443; 85025; 93005; 96360; 96361; 99281; A9270-GY; G0480

== ENCOUNTER 2019-08-31 17:35 | Emergency (ER) | payer MEDICARE, MEDICAID ==
[2019-08-31 17:49] VITALS: BP 127/90
--- OUTSIDE RECORDS SUMMARY | 2019-08-31 17:58 | XMS REPORT ---
:1980 Author Organization [facility] Care Team Providers Name Role Phone Zac Lira Primary Care Physician Unavailable Allergies, Adverse Reactions, Alerts Allergy Code CodeSystem Reaction Severity Criticality Status Start Substance Date Moderate Medications Medication Medication Medication Start Stop Route Dose Status Fill Code CodeSystem Date Date Instructions RxNorm Problems Problem Name Code CodeSystem Alternate Alternate Start End Status Narrative Code CodeSystem Date Date Depressive 23902579 SNOMED-CT Active episode, 10-06 unspecified Depressive [id number] SNOMED-CT Active episode, 10-06 unspecified Depressive [id number] SNOMED-CT Active episode, 10-06 unspecified Depressive 13460854 SNOMED-CT Active episode, 10-06 unspecified Relevant diagnostic tests/laboratory data Narrative No Information Procedures Procedure Code CodeSystem Target Date of Status Service Device Device Device Name Site Procedure Delivery Code Name UID Location Psychother [id number] SNOMED-CT () 2019-06-04 completed Mental apy, 45 4 Health- [facility] with [facility] patient [address] [place] [address], [id number] SNOMED-CT () 2018-11-[address], [id number] SNOMED-CT () 2018-11-[address], [id number] SNOMED-CT () 2018-11-[address], [id number] SNOMED-CT () 2019-02-[address], [id number] SNOMED-CT () 2019-02-[address], [id number] SNOMED-CT () 2019-02-14 completed Mental Health- [address], [id number] SNOMED-CT () 2019-07-16 completed Mental Health- [address], [id number] SNOMED-CT () 2019-05-08 [facility] Mental Health- [address], [id number] Encounters/Encounter Diagnoses Encounter Name Encounter Diagnosis Diagnosis Diagnosis Date of Service Code Code Name CodeSystem Diagnosis Delivery Location Psychotherapy - 08809 SNOMED-CT 2019-07-16 Behavioral Individual [facility] [address] [place] [address], [phone] Vital Signs No Information Social History Element Description Description Start End Code CodeSystem AdditionalInfo Date Date SexAssignedAtBirth Male 1981-0 M AdministrativeGender 12-24 Hospital Discharge Instructions Reason For Referral Medical Equipment FDA Assessments
--- OUTSIDE RECORDS SUMMARY | 2019-08-31 17:58 | XMS REPORT ---
:1980 Author Organization [facility] Care Team Providers Name Role Phone Zac Lira Primary Care Physician Unavailable Allergies, Adverse Reactions, Alerts Allergy Code CodeSystem Reaction Severity Criticality Status Start Substance Date Moderate Medications Medication Medication Medication Start Stop Route Dose Status Fill Code CodeSystem Date Date Instructions RxNorm Problems Problem Name Code CodeSystem Alternate Alternate Start End Status Narrative Code CodeSystem Date Date Depressive 28505384 SNOMED-CT Active episode, 10-06 unspecified Depressive 14275759 SNOMED-CT Active episode, 10-06 unspecified Depressive 45088640 SNOMED-CT Active episode, 10-06 unspecified Depressive 80038383 SNOMED-CT Active episode, 10-06 unspecified Relevant diagnostic tests/laboratory data Narrative No Information Procedures Procedure Code CodeSystem Target Date of Status Service Device Device Device Name Site Procedure Delivery Code Name UID Location Psychother [id number] SNOMED-CT () 2019-06-04 completed Mental apy, 45 4 Health- [facility] with [facility] patient [address] [place] [address], [id number] SNOMED-CT () 2018-11-[address], [id number] SNOMED-CT () 2018-11-[address], [id number] SNOMED-CT () 2018-11-[address], [id number] SNOMED-CT () 2019-02-[address], [id number] SNOMED-CT () 2019-02-[address], [id number] SNOMED-CT () 2019-02-14 completed Mental Health- [address], [id number] SNOMED-CT () 2019-05-08 completed Mental Health- [address], [id number] Encounters/Encounter Diagnoses Encounter Name Encounter Diagnosis Diagnosis Diagnosis Date of Service Code Code Name CodeSystem Diagnosis Delivery Location [facility] [address] SNOMED-CT 2019-06-04 Behavioral Individual [facility] [address] [place] [address], [phone] Vital Signs No Information Social History Element Description Description Start End Code CodeSystem AdditionalInfo Date Date SexAssignedAtBirth Male 1980-0 M AdministrativeGender 12-24 Hospital Discharge Instructions Reason For Referral Medical Equipment FDA Assessments
== END 2019-08-31 19:45 | disposition left against medical advice (07) ==
LOC: ED 17:35
DX: M25.511 Pain in right shoulder (principal); Z53.21 Procedure and treatment not carried out due to patient leaving prior to being seen by health care provider
CPT/HCPCS: 99281

== ENCOUNTER 2019-09-08 11:27 | Emergency (ER) | payer MEDICARE, MEDICAID ==
--- NOTE | 2019-09-08 11:53 | ED ---
Complex/Multi-Sys Presentation - HPI Summary HPI Summary: Patient is a 38 y/o M presenting to [facility] with complaints of infection to his left knee and pain to his right shoulder. He states that he has been experiencing pain and erythema to his left knee as well as swelling of his lower left leg for the past week. Patient also claims that he has had clear drainage without pus from the knee a few days ago. He had his leg evaluated and was prescribed doxycycline. Patient notes that the erythema has gone down since starting the antibiotic. He is unsure of how these Sx started but does note that he had to have his place sprayed for bed bugs. Patient states that the knee is tight but he is capable of bending it. He also states that his left leg gave out a few days ago when he was stepping down; patient had to grab onto something nearby him with his right hand and he has been experiencing pain at his right shoulder since. Some cough is noted but no CP or SOB. He denies Hx of blood clots and diabetes. Home medications and allergies are reviewed. - History Of Current Complaint Chief Complaint: EDExtremityLower Time Seen by Provider: 09/08/19 11:36 Hx Obtained From: Patient Onset/Duration: Still Present Timing: Constant Severity Currently: Severe Location: Pain At: - left knee, right shoulder Associated Signs And Symptoms: Positive: Cough, Edema, Other - positive - left knee pain, erythema, clear drainage; right shoulder pain. Negative: SOB, Chest Pain - Allergies/Home Medications Allergies/Adverse Reactions: Allergies Allergy/AdvReac Type Severity Reaction Status Date / Time No Known Allergies Allergy Verified 09/08/19 11:32 Home Medications: Home Medications buPROPion HCl [Wellbutrin Sr] 300 mg PO DAILY 09/06/17 [History Confirmed ] Lisdexamfetamine Dimesylate [Vyvanse] 70 mg PO DAILY 10/07/17 [History Confirmed 11/23/18] PMH/Surg Hx/FS Hx/Imm Hx Endocrine/Hematology History: Denies: Hx Diabetes, Hx Thyroid Disease Cardiovascular History: Denies: Hx Hypertension Respiratory History: Denies: Hx Asthma, Hx Chronic Obstructive Pulmonary Disease (COPD) GI History: Denies: Hx Ulcer Psychiatric History: Reports: Hx Depression Denies: Hx Anxiety, Hx Schizophrenia, Hx Bipolar Disorder - Surgical History Surgery Procedure, Year, and Place: hernia-1994 Infectious Disease History: No Infectious Disease History: Denies: Hx Clostridium Difficile, Hx Hepatitis, Hx Human Immunodeficiency Virus (HIV), Hx of Known/Suspected MRSA, Hx Shingles, Hx Tuberculosis, Hx Known/ Suspected VRE, Hx Known/Suspected VRSA, History Other Infectious Disease, Traveled Outside the [place] in Last 30 Days - Family History Known Family History: Positive: Cardiac Disease - Father [place] age 55 , Diabetes Negative: Hypertension - Social History Alcohol Use: None Hx Substance Use: Yes - 2 days sober 10/07/17 - just got into [facility] Substance Use Type: Reports: Cocaine, Heroin, Marijuana, Synthetic Drugs Hx Tobacco Use: Yes Smoking Status (MU): Heavy Every Day Tobacco Smoker Amount Used/How Often: 1 1/2ppd Review of Systems Negative: Chest Pain Positive: Cough. Negative: Shortness Of Breath Positive: Myalgia - left knee, right shoulder , Edema - left lower leg Skin: Other - positive - erythema of left knee All Other Systems Reviewed And Are Negative: Yes Physical Exam - Summary Physical Exam Summary: Constitutional: Well-developed, Well-nourished, Alert. (-) Distressed Skin: Warm, Dry HENT: Normocephalic; Atraumatic Eyes: Conjunctiva normal Neck: Musculoskeletal ROM normal neck. (-) JVD, (-) Stridor, (-) Tracheal deviation Cardio: Rhythm regular, rate normal, Heart sounds normal; Intact distal pulses; The pedal pulses are 2+ and symmetric. Radial pulses are 2+ and symmetric. (-) Murmur Pulmonary/Chest wall: Effort normal. (-) Respiratory distress, (-) Wheezes, (-) Rales Abd: Soft, (-) tenderness, (-) Distension, (-) Guarding, (-) Rebound Musculoskeletal: Left knee is erythematous; there is tenderness to palpation of the knee and slight fluctuance with no clear pus pocket. No drainage noted. Slight edema throughout the lower left leg. Right shoulder is with decreased ROM secondary to pain, no gross deformity. Lymph: (-) Cervical adenopathy Neuro: Alert, Oriented x3 Psych: Mood and affect Normal Triage Information Reviewed: Yes Vital Signs On Initial Exam: Initial Vitals Temp Pulse Resp BP Pulse Ox 97.5 F 98 18 124/93 98 09/08/19 11:29 09/08/19 11:29 09/08/19 11:29 09/08/19 11:29 09/08/19 11:29 Vital Signs Reviewed: Yes Procedures - Sedation Patient Received Moderate/Deep Sedation with Procedure: No Diagnostics - Vital Signs Vital Signs Temp Pulse Resp BP Pulse Ox 09/08/19 11:29 97.5 F 98 18 124/93 98 - Laboratory Lab Statement: Any lab studies that have been ordered have been reviewed, and results considered in the medical decision making process. - Radiology RIGHT SHOULDER X-RAY Radiology Interpretation Completed By: Radiologist Summary of Radiographic Findings: IMPRESSION: NO ACUTE OSSEOUS INJURY. IF SYMPTOMS PERSIST, RECOMMEND REPEAT IMAGING. THIS REPORT WAS REVIEWED BY ED PHYSICIAN. - Ultrasound SOFT TISSUE US Ultrasound Interpretation Completed By: Radiologist Summary of Ultrasound Findings: IMPRESSION: COMPLEX HYPOECHOIC LESION OF THE ANTERIOR KNEE MEASURING UP TO 6.6 CM. SUGGESTIVE OF PHLEGMON/EARLY ABSCESS GIVEN THE CLINICAL HISTORY. THIS REPORT WAS REVIEWED BY ED PHYSICIAN. Complex Multi-Symp Course/Dx Course Of Treatment: Patient is a 38 y/o M presenting to [facility] with complaints of infection to his left knee and pain to his right shoulder. He states that he has been experiencing pain and erythema to his left knee as well as swelling of his lower left leg for the past week. Patient also claims that he has had clear drainage without pus from the knee a few days ago. He had his leg evaluated and was prescribed doxycycline. Patient notes that the erythema has gone down since starting the antibiotic. He is unsure of how these Sx started but does note that he had to have his place sprayed for bed bugs. Patient states that the knee is tight but he is capable of bending it. He also states that his left leg gave out a few days ago when he was stepping down; patient had to grab onto something nearby him with his right hand and he has been experiencing pain at his right shoulder since. Some cough is noted but no CP or SOB. He denies Hx of blood clots and diabetes. Left knee is erythematous; there is tenderness to palpation of the knee and slight fluctuance with no clear pus pocket. No drainage noted. Slight edema throughout the lower left leg. Right shoulder is with decreased ROM secondary to pain, no gross deformity. During ED course, patient received 1 L NS and Ceftriaxone sodium 1 gm in sodium chloride, 50 mls @ 100 mlshr IVPB. RIGHT SHOULDER X-RAY IMPRESSION: NO ACUTE OSSEOUS INJURY. IF SYMPTOMS PERSIST, RECOMMEND REPEAT IMAGING. SOFT TISSUE US IMPRESSION: COMPLEX HYPOECHOIC LESION OF THE ANTERIOR KNEE MEASURING UP TO 6.6 CM. SUGGESTIVE OF PHLEGMON/EARLY ABSCESS GIVEN THE CLINICAL HISTORY. Patient currently taking doxycycline as an outpatient, and noted the erythema around his left knee has been lessening. Patient encouraged to continue antibiotics and follow up with PCP Tuesday. - Diagnoses Provider Diagnoses: Right shoulder strain, Left leg cellulitis Discharge ED - Sign-Out/Discharge Documenting (check all that apply): Patient Departure - discharge - Discharge Plan Condition: Stable Disposition: HOME Patient Education Materials: Cellulitis (ED), Shoulder Sprain (ED) Referrals: Sona Jang MD [Primary Care Provider] - 2 Days Additional Instructions: PLEASE RETURN TO ED FOR ANY NEW OR CONCERNING SYMPTOMS. PLEASE FOLLOW UP WITH YOUR PRIMARY CARE PHYSICIAN TUESDAY. - Billing Disposition and Condition Condition: STABLE Disposition: Home - Attestation Statements Document Initiated by Edward: Yes Documenting Scribe: UMANG AGUIRRE Provider For Whom Edward is Documenting (Include Credential): DALLIN BRAND DO Scribe Attestation: UMANG Aguillon scribed for DALLIN BRAND DO on 09/08/19 at 1541. Scribe Documentation Reviewed: Yes Provider Attestation: The documentation as recorded by the UMANG millard accurately reflects the service I personally performed and the decisions made by DALLIN catalan DO Status of Scribjose Document: Viewed
[2019-09-08] MEDS ORDERED: NS 0.9% 1000 ML** 1,000 ML IV ONE (12:02)
[2019-09-08] MEDS ORDERED: cefTRIAXone(*) 1 GM in NS 0.9% 50 ML* 50 ML IVPB ONE (12:06)
[2019-09-08] MEDS ORDERED: Ketorolac INJ* 30 MG/ML 1 ML VIAL IV PUSH ONE (13:03)
[2019-09-08 14:20] VITALS: BP 121/84
== END 2019-09-08 14:19 | disposition home or self-care (01) ==
LOC: ED 11:27
DX: S46.911A Strain of unspecified muscle, fascia and tendon at shoulder and upper arm level, right arm, initial encounter (principal); L03.116 Cellulitis of left lower limb; R05 Cough; R60.9 Edema, unspecified; M25.511 Pain in right shoulder; F17.210 Nicotine dependence, cigarettes, uncomplicated; X58.XXXA Exposure to other specified factors, initial encounter; Y92.9 Unspecified place or not applicable
CPT/HCPCS: 96361; 96365; 96375; 99282; J0696; J1885

== ENCOUNTER 2021-05-11 19:50 | Inpatient (IN) ==
[2021-05-11] MEDS ORDERED: Al Hydrox/Mg Hydrox/Simet LIQ 30 ML UDC PO PRN (20:13)
[2021-05-11] MEDS ORDERED: Nicotine GUM 2MG FRUIT FLAVOR PO PRN (21:00)
[2021-05-12] MEDS: Lisdexamfetamine 10 mg CAP(NF) PO SCH (07:38)
[2021-05-12] MEDS: Nicotine PATCH 14 MG/24 HR PATCH TRANSDERM SCH (07:38)
[2021-05-12] MEDS: Vitamin THERAPEUTIC TAB PO SCH (07:38)
[2021-05-12] MEDS: TESTOSTERONE GEL 25 MG (NF) IN 2.5 GM SIZE PACKET TOPICAL SCH (07:38)
[2021-05-13] MEDS: Lisdexamfetamine 10 mg CAP(NF) PO SCH (07:53)
[2021-05-13] MEDS: Vitamin THERAPEUTIC TAB PO SCH (07:53)
[2021-05-13] MEDS: Nicotine PATCH 14 MG/24 HR PATCH TRANSDERM SCH (07:55)
[2021-05-13] MEDS: TESTOSTERONE GEL 25 MG (NF) IN 2.5 GM SIZE PACKET TOPICAL SCH (09:09)
[2021-05-13] MEDS ORDERED: Senna TAB 8.6 mg TAB PO ONE (10:23)
[2021-05-13] MEDS: Polyethylene Glycol 3350 17 GM PACKET PO SCH ×2 (13:11→15:10)
[2021-05-14 07:46] LABS: HDL Cholesterol 39.9 mg/dL
[2021-05-14] MEDS: Lisdexamfetamine 10 mg CAP(NF) PO SCH (07:57)
[2021-05-14] MEDS: Vitamin THERAPEUTIC TAB PO SCH (07:58)
[2021-05-14] MEDS: Nicotine PATCH 14 MG/24 HR PATCH TRANSDERM SCH (07:59)
[2021-05-14] MEDS: TESTOSTERONE GEL 25 MG (NF) IN 2.5 GM SIZE PACKET TOPICAL SCH (09:14)
[2021-05-14] MEDS: Senna TAB 8.6 mg TAB PO SCH (20:06)
[2021-05-14] MEDS: Polyethylene Glycol 3350 17 GM PACKET PO SCH (20:43)
[2021-05-15] MEDS: Polyethylene Glycol 3350 17 GM PACKET PO SCH ×2 (07:49→20:12)
[2021-05-15] MEDS: Vitamin THERAPEUTIC TAB PO SCH (08:07)
[2021-05-15] MEDS: Lisdexamfetamine 10 mg CAP(NF) PO SCH (08:07)
[2021-05-15] MEDS: Nicotine PATCH 14 MG/24 HR PATCH TRANSDERM SCH (08:07)
[2021-05-15] MEDS: TESTOSTERONE GEL 25 MG (NF) IN 2.5 GM SIZE PACKET TOPICAL SCH (09:47)
[2021-05-15] MEDS: Senna TAB 8.6 mg TAB PO SCH (20:10)
[2021-05-16] MEDS: Polyethylene Glycol 3350 17 GM PACKET PO SCH ×2 (08:10→20:18)
[2021-05-16] MEDS: Nicotine PATCH 14 MG/24 HR PATCH TRANSDERM SCH (08:12)
[2021-05-16] MEDS: Lisdexamfetamine 10 mg CAP(NF) PO SCH (08:12)
[2021-05-16] MEDS: Vitamin THERAPEUTIC TAB PO SCH (08:13)
[2021-05-16] MEDS: TESTOSTERONE GEL 25 MG (NF) IN 2.5 GM SIZE PACKET TOPICAL SCH (09:32)
[2021-05-16] MEDS: Senna TAB 8.6 mg TAB PO SCH (20:17)
[2021-05-17] MEDS: Polyethylene Glycol 3350 17 GM PACKET PO SCH ×2 (08:08→20:04)
[2021-05-17] MEDS: Nicotine PATCH 14 MG/24 HR PATCH TRANSDERM SCH (08:09)
[2021-05-17] MEDS: Lisdexamfetamine 10 mg CAP(NF) PO SCH (08:09)
[2021-05-17] MEDS: Vitamin THERAPEUTIC TAB PO SCH (08:09)
[2021-05-17] MEDS: TESTOSTERONE GEL 25 MG (NF) IN 2.5 GM SIZE PACKET TOPICAL SCH (10:27)
[2021-05-17] MEDS: Senna TAB 8.6 mg TAB PO SCH (20:03)
[2021-05-18 08:06] VITALS: BP 108/72
[2021-05-18] MEDS: Polyethylene Glycol 3350 17 GM PACKET PO SCH (08:22)
[2021-05-18] MEDS: Nicotine PATCH 14 MG/24 HR PATCH TRANSDERM SCH (08:23)
[2021-05-18] MEDS: Vitamin THERAPEUTIC TAB PO SCH (08:24)
[2021-05-18] MEDS: Lisdexamfetamine 10 mg CAP(NF) PO SCH (08:24)
[2021-05-18] MEDS: TESTOSTERONE GEL 25 MG (NF) IN 2.5 GM SIZE PACKET TOPICAL SCH (09:28)
[2021-05-18] MEDS ORDERED: PEG 3000 GI LAVAGE 1 GALLON PO ONE (13:19)
[2021-05-18] MEDS ORDERED: PEG 3000 GI LAVAGE 1 GALLON PO SCH (17:00)
== END 2021-05-18 18:14 | disposition home or self-care (01) | DRG 885 ==
LOC: BSU 19:50
PROVIDERS: ADMIT Psychiatry & Neurology Psychiatry; ATTEND Psychiatry & Neurology Psychiatry

== ENCOUNTER 2021-12-31 07:14 | Inpatient (IN) ==
[2021-12-31] MEDS ORDERED: cefTRIAXone 2 gm/50 mL D5W 2 GM/50 ML BAG IV ONE (07:32)
[2021-12-31] MEDS ORDERED: Vancomycin 1,500 MG in NS 0.9% 250 ml 250 ML IVPB ONE (07:32)
[2021-12-31] MEDS ORDERED: Tetan/Diph/Pertus SYR(Tdap) 0.5 ML SYR(BOOSTRIX) use SYR contains LATEX IM ONE (07:34)
[2021-12-31 08:39] LABS: ABS Basophils 0.1 10^3/ul (0-0.2); ABS Eosinophils 0.1 10^3/ul (0-0.6); ABS Lymphocytes 1.5 10^3/ul (1.0-4.8); ABS Monocytes 0.7 10^3/ul (0-0.8); ABS Neutrophils 7.4 10^3/ul (1.5-7.7); Eosinophil % 0.9 %; Hematocrit 37 % (42-52); Hemoglobin 12.9 g/dL (14.0-18.0); Lymphocyte % 15.1 %; Mean Corpuscular HGB Conc 35 g/dL (31-36); Mean Corpuscular Hemoglobin 30 pg (27-31); Mean Corpuscular Volume 86 fL (80-94); Mean Platelet Volume 7.5 fL (7.4-10.4); Platelet Count 271 10^3/uL (150-450); Red Blood Count 4.33 10^6 /uL (4.18-5.48); Red Cell Distribution Width 13 % (10-15); White Blood Count 9.8 10^3/uL (3.5-10.8)
[2021-12-31 09:17] LABS: Albumin 3.9 g/dL (3.2-5.2); Albumin/Globulin Ratio 1.2 (1-3); C Reactive Protein 146.44 mg/L (<8.01); Calcium 9.5 mg/dL (8.6-10.3); Globulin 3.3 g/dL (2-4); Total Bilirubin 0.5 mg/dL (0.2-1.0); Total Protein 7.2 g/dL (6.4-8.9)
[2021-12-31] MEDS ORDERED: Ondansetron 4 mg VIAL 2 MG/ML 2 ml VIAL IV PRN (10:41)
[2021-12-31] MEDS ORDERED: Vancomycin per Pharmacy 1 EA NOTE FOLLOW UP SCH (11:00)
[2021-12-31] MEDS: Lactated Ringers 1000 ml BAG 1,000 ML IV SCH (13:50)
[2021-12-31 14:19] LABS: INR 1.2 (0.86-1.15)
[2021-12-31] MEDS: Vancomycin 1,250 MG in NS 0.9% 250 ml 250 ML IVPB SCH (17:30)
[2021-12-31] MEDS: CMC:Venlafaxine 25 mg TAB (NF) PO SCH (20:58)
[2022-01-01] MEDS: Vancomycin 1,250 MG in NS 0.9% 250 ml 250 ML IVPB SCH ×4 (02:17→22:44)
[2022-01-01] MEDS: Lactated Ringers 1000 ml BAG 1,000 ML IV SCH ×4 (05:51→22:17)
[2022-01-01] MEDS: CMC:Venlafaxine 25 mg TAB (NF) PO SCH ×3 (06:38→21:10)
[2022-01-01] MEDS ORDERED: Midazolam 2 mg/2 ml VIAL 1 mg/ml 2 ml VIAL (2 mg) ONE (08:03)
[2022-01-01] MEDS ORDERED: Lidocaine 2% PF 5 ML VIAL ONE (08:03)
[2022-01-01] MEDS ORDERED: Ondansetron 4 mg VIAL 2 MG/ML 2 ml VIAL ONE (08:03)
[2022-01-01] MEDS ORDERED: Propofol 10 MG/ML 20 ML BTL ONE (08:03)
[2022-01-01] MEDS ORDERED: fentaNYL 250 mcg/5 ml 50 MCG/ML 5 ml VIAL (250 MCG) ONE (08:03)
[2022-01-01] MEDS ORDERED: Vancomycin 1,000 MG VIAL ONE (08:50)
[2022-01-01] MEDS ORDERED: cefTRIAXone 2 gm/50 mL D5W 2 GM/50 ML BAG IV SCH (09:00)
[2022-01-01] MEDS ORDERED: HYDROmorphone 0.5 MG/0.5 ML SYRINGE ONE ×2 (09:07→09:16)
[2022-01-01] MEDS ORDERED: Acetaminophen IV 1 GM/100ML 100 ML IV ONE (09:14)
[2022-01-01] MEDS ORDERED: Vancomycin Trough Check NOTE FOLLOW UP ONE (09:30)
[2022-01-01] MEDS: Lisdexamfetamine 10 mg CAP(NF) PO SCH (10:45)
[2022-01-01 11:12] LABS: ABS Basophils 0.1 10^3/ul (0-0.2); ABS Eosinophils 0.1 10^3/ul (0-0.6); ABS Lymphocytes 1.7 10^3/ul (1.0-4.8); ABS Monocytes 0.5 10^3/ul (0-0.8); Eosinophil % 2.7 %; Hematocrit 36 % (42-52); Hemoglobin 12.5 g/dL (14.0-18.0); Lymphocyte % 30.9 %; Mean Corpuscular HGB Conc 35 g/dL (31-36); Mean Corpuscular Hemoglobin 30 pg (27-31); Mean Corpuscular Volume 85 fL (80-94); Mean Platelet Volume 7.4 fL (7.4-10.4); Nucleated Red Blood Cells % 0.1; Platelet Count 259 10^3/uL (150-450); Red Blood Count 4.21 10^6 /uL (4.18-5.48); Red Cell Distribution Width 13 % (10-15); White Blood Count 5.3 10^3/uL (3.5-10.8)
[2022-01-01] MEDS ORDERED: Magnesium Hydroxide LIQ 30 ML UDC PO PRN (13:06)
[2022-01-01] MEDS ORDERED: Senna TAB 8.6 mg TAB PO PRN (13:06)
[2022-01-01] MEDS ORDERED: Polyethylene Glycol 3350 17 GM PACKET PO PRN (13:06)
[2022-01-01] MEDS: Aspirin EC 325 mg TAB.EC PO SCH ×2 (13:30→21:10)
[2022-01-01 14:02] LABS: Blood Urea Nitrogen 13 mg/dL (6-24); C Reactive Protein 104.12 mg/L (<8.01); CO2 Carbon Dioxide 26 mmol/L (22-32); Calcium 8.7 mg/dL (8.6-10.3); Chloride 104 mmol/L (101-111); Glucose 109 mg/dL (70-100); Sodium 139 mmol/L (135-145); Vancomycin Trough 14.1 mcg/mL
[2022-01-01 14:17] LABS: Anion Gap 9 mmol/L (2-11)
[2022-01-01] MEDS: Morphine 2 MG/ML SYRINGE IV PRN ×2 (17:00→21:12)
[2022-01-02] MEDS: Morphine 2 MG/ML SYRINGE IV PRN ×5 (05:44→22:27)
[2022-01-02] MEDS: Vancomycin 1,250 MG in NS 0.9% 250 ml 250 ML IVPB SCH ×3 (05:47→22:47)
[2022-01-02] MEDS: Lisdexamfetamine 10 mg CAP(NF) PO SCH (08:14)
[2022-01-02] MEDS: CMC:Venlafaxine 25 mg TAB (NF) PO SCH ×2 (08:15→22:45)
[2022-01-02] MEDS: Aspirin EC 325 mg TAB.EC PO SCH ×2 (08:17→22:26)
[2022-01-02 08:54] LABS: Hematocrit 40 % (42-52); Hemoglobin 13.1 g/dL (14.0-18.0); Mean Corpuscular HGB Conc 33 g/dL (31-36); Mean Corpuscular Hemoglobin 29 pg (27-31); Mean Corpuscular Volume 88 fL (80-94); Red Blood Count 4.51 10^6 /uL (4.18-5.48); Red Cell Distribution Width 13 % (10-15); White Blood Count 9.3 10^3/uL (3.5-10.8)
[2022-01-02 09:33] LABS: Blood Urea Nitrogen 10 mg/dL (6-24); CO2 Carbon Dioxide 25 mmol/L (22-32); Calcium 8.8 mg/dL (8.6-10.3); Chloride 105 mmol/L (101-111); Glucose 98 mg/dL (70-100); Sodium 139 mmol/L (135-145); eGFR CKD-EPI 120.7 (>60)
[2022-01-02] MEDS: Nicotine Lozenge mini 2 MG LOZNG.MINI MT PRN ×3 (09:33→16:39)
[2022-01-02 09:39] LABS: Anion Gap 9 mmol/L (2-11)
[2022-01-02 09:42] LABS: ABS Basophils 0.1 10^3/ul (0-0.2); ABS Eosinophils 0.3 10^3/ul (0-0.6); ABS Lymphocytes 3.7 10^3/ul (1.0-4.8); ABS Monocytes 0.7 10^3/ul (0-0.8); ABS Neutrophils 4.5 10^3/ul (1.5-7.7); Eosinophil % 3.4 %; Mean Platelet Volume 7.8 fL (7.4-10.4); Nucleated Red Blood Cells % 0.2; Platelet Count 258 10^3/uL (150-450)
[2022-01-02 12:28] LABS: Magnesium 1.8 mg/dL (1.9-2.7); Potassium Redraw 4.8 mmol/L (3.5-5.0)
[2022-01-02 12:36] LABS: HIV 4th Generation Nonreactive (Nonreactive)
[2022-01-02] MEDS ORDERED: Magnesium Sulfate IV 1GM/100ML 1 GM/100 ML BAG IV ONE (13:13)
[2022-01-03] MEDS: Morphine 2 MG/ML SYRINGE IV PRN ×4 (05:24→18:56)
[2022-01-03] MEDS ORDERED: Vancomycin Trough Check NOTE FOLLOW UP ONE (05:30)
[2022-01-03] MEDS: Nicotine Lozenge mini 2 MG LOZNG.MINI MT PRN ×6 (05:48→16:41)
[2022-01-03] MEDS: Lisdexamfetamine 10 mg CAP(NF) PO SCH (08:34)
[2022-01-03] MEDS: Aspirin EC 325 mg TAB.EC PO SCH ×2 (08:37→21:49)
[2022-01-03] MEDS: CMC:Venlafaxine 25 mg TAB (NF) PO SCH ×2 (08:46→21:49)
[2022-01-03 09:15] LABS: ABS Basophils 0.1 10^3/ul (0-0.2); ABS Eosinophils 0.3 10^3/ul (0-0.6); ABS Lymphocytes 2.7 10^3/ul (1.0-4.8); ABS Monocytes 0.4 10^3/ul (0-0.8); ABS Neutrophils 2.4 10^3/ul (1.5-7.7); Eosinophil % 4.4 %; Hematocrit 38 % (42-52); Hemoglobin 12.9 g/dL (14.0-18.0); Lymphocyte % 46.2 %; Mean Corpuscular HGB Conc 34 g/dL (31-36); Mean Corpuscular Hemoglobin 29 pg (27-31); Mean Corpuscular Volume 86 fL (80-94); Mean Platelet Volume 7.5 fL (7.4-10.4); Platelet Count 277 10^3/uL (150-450); Red Cell Distribution Width 13 % (10-15); White Blood Count 5.8 10^3/uL (3.5-10.8)
[2022-01-03 09:24] LABS: Calcium 9.6 mg/dL (8.6-10.3); Potassium 4.8 mmol/L (3.5-5.0)
[2022-01-03 09:30] LABS: eGFR CKD-EPI 115.5 (>60)
[2022-01-03 09:34] LABS: eGFR CKD-EPI 115.5 (>60)
[2022-01-03 09:47] LABS: Vancomycin Trough 12.3 mcg/mL
[2022-01-03] MEDS: Vancomycin 1,250 MG in NS 0.9% 250 ml 250 ML IVPB SCH ×3 (10:32→18:16)
[2022-01-03] MEDS: Nicotine Lozenge mini 4 MG LOZNG.MINI MT PRN ×2 (18:16→21:51)
[2022-01-04] MEDS: Vancomycin 1,250 MG in NS 0.9% 250 ml 250 ML IVPB SCH ×3 (02:05→18:03)
[2022-01-04] MEDS: Nicotine Lozenge mini 4 MG LOZNG.MINI MT PRN ×6 (02:39→22:00)
[2022-01-04 06:56] LABS: ABS Basophils 0.1 10^3/ul (0-0.2); ABS Eosinophils 0.2 10^3/ul (0-0.6); ABS Lymphocytes 2.4 10^3/ul (1.0-4.8); ABS Monocytes 0.4 10^3/ul (0-0.8); ABS Neutrophils 2.1 10^3/ul (1.5-7.7); Eosinophil % 4.5 %; Hematocrit 37 % (42-52); Hemoglobin 12.6 g/dL (14.0-18.0); Lymphocyte % 45.9 %; Mean Corpuscular HGB Conc 34 g/dL (31-36); Mean Corpuscular Hemoglobin 30 pg (27-31); Mean Corpuscular Volume 86 fL (80-94); Mean Platelet Volume 7.4 fL (7.4-10.4); Platelet Count 258 10^3/uL (150-450); Red Blood Count 4.26 10^6 /uL (4.18-5.48); Red Cell Distribution Width 13 % (10-15); White Blood Count 5.1 10^3/uL (3.5-10.8)
[2022-01-04 07:29] LABS: Calcium 9.1 mg/dL (8.6-10.3); Magnesium 1.9 mg/dL (1.9-2.7); Potassium 4.1 mmol/L (3.5-5.0); eGFR CKD-EPI 115.1 (>60)
[2022-01-04] MEDS: Lisdexamfetamine 10 mg CAP(NF) PO SCH (08:28)
[2022-01-04] MEDS: Aspirin EC 325 mg TAB.EC PO SCH ×2 (08:28→20:25)
[2022-01-04] MEDS: CMC:Venlafaxine 25 mg TAB (NF) PO SCH ×2 (08:29→20:25)
[2022-01-04] MEDS: Morphine 2 MG/ML SYRINGE IV PRN ×3 (09:45→18:03)
[2022-01-05] MEDS: Nicotine Lozenge mini 4 MG LOZNG.MINI MT PRN ×5 (00:01→15:33)
[2022-01-05] MEDS: Nicotine GUM 4MG FRUIT FLAVOR PO PRN ×3 (00:01→17:44)
[2022-01-05] MEDS: Morphine 2 MG/ML SYRINGE IV PRN ×5 (00:01→22:33)
[2022-01-05] MEDS: Vancomycin 1,250 MG in NS 0.9% 250 ml 250 ML IVPB SCH ×2 (03:14→10:48)
[2022-01-05 07:26] LABS: ABS Basophils 0.1 10^3/ul (0-0.2); ABS Eosinophils 0.2 10^3/ul (0-0.6); ABS Lymphocytes 2.4 10^3/ul (1.0-4.8); ABS Monocytes 0.4 10^3/ul (0-0.8); ABS Neutrophils 2.3 10^3/ul (1.5-7.7); Eosinophil % 4.5 %; Hematocrit 37 % (42-52); Hemoglobin 12.7 g/dL (14.0-18.0); Lymphocyte % 44.9 %; Mean Corpuscular HGB Conc 34 g/dL (31-36); Mean Corpuscular Hemoglobin 30 pg (27-31); Mean Corpuscular Volume 86 fL (80-94); Mean Platelet Volume 7.5 fL (7.4-10.4); Platelet Count 252 10^3/uL (150-450); Red Blood Count 4.29 10^6 /uL (4.18-5.48); Red Cell Distribution Width 13 % (10-15); White Blood Count 5.3 10^3/uL (3.5-10.8)
[2022-01-05 07:49] LABS: Magnesium 1.9 mg/dL (1.9-2.7); Potassium 4.2 mmol/L (3.5-5.0)
[2022-01-05] MEDS: CMC:Venlafaxine 25 mg TAB (NF) PO SCH ×2 (09:23→19:52)
[2022-01-05] MEDS: Aspirin EC 325 mg TAB.EC PO SCH ×2 (09:23→19:52)
[2022-01-05] MEDS: Lisdexamfetamine 10 mg CAP(NF) PO SCH (09:25)
[2022-01-05] MEDS ORDERED: Vancomycin Trough Check NOTE FOLLOW UP ONE (10:00)
[2022-01-05] MEDS: Enoxaparin 40 MG/0.4 ML SYR SUBCUT SCH (15:30)
[2022-01-05] MEDS: Vancomycin 1000 MG in NS 0.9% 250 ML IVPB SCH (19:50)
[2022-01-06] MEDS: Vancomycin 1000 MG in NS 0.9% 250 ML IVPB SCH ×3 (04:06→18:07)
[2022-01-06] MEDS: Lisdexamfetamine 10 mg CAP(NF) PO SCH (08:05)
[2022-01-06] MEDS: Aspirin EC 325 mg TAB.EC PO SCH ×2 (08:06→20:58)
[2022-01-06] MEDS: CMC:Venlafaxine 25 mg TAB (NF) PO SCH ×2 (08:06→20:56)
[2022-01-06 08:09] LABS: eGFR CKD-EPI 118.5 (>60)
[2022-01-06] MEDS: Nicotine GUM 4MG FRUIT FLAVOR PO PRN ×2 (08:11→15:38)
[2022-01-06] MEDS: Nicotine Lozenge mini 4 MG LOZNG.MINI MT PRN ×3 (08:11→20:56)
[2022-01-06] MEDS: Morphine 2 MG/ML SYRINGE IV PRN ×3 (10:56→20:58)
[2022-01-06] MEDS: Enoxaparin 40 MG/0.4 ML SYR SUBCUT SCH (13:04)
[2022-01-07] MEDS: Vancomycin 1000 MG in NS 0.9% 250 ML IVPB SCH (02:34)
[2022-01-07] MEDS: CMC:Venlafaxine 25 mg TAB (NF) PO SCH ×2 (08:14→20:16)
[2022-01-07] MEDS: Lisdexamfetamine 10 mg CAP(NF) PO SCH (08:14)
[2022-01-07] MEDS: Aspirin EC 325 mg TAB.EC PO SCH ×2 (08:14→20:16)
[2022-01-07] MEDS: Nicotine Lozenge mini 4 MG LOZNG.MINI MT PRN ×3 (09:19→15:52)
[2022-01-07] MEDS ORDERED: Vancomycin Trough Check NOTE FOLLOW UP ONE (10:00)
[2022-01-07] MEDS: Sulfamethox/Trimethoprim DS TAB 800/160 mg PO SCH ×2 (10:03→20:16)
[2022-01-07] MEDS: Morphine 2 MG/ML SYRINGE IV PRN ×3 (11:48→20:17)
[2022-01-07] MEDS: Enoxaparin 40 MG/0.4 ML SYR SUBCUT SCH (14:05)
[2022-01-07] MEDS: Nicotine GUM 4MG FRUIT FLAVOR PO PRN (14:05)
[2022-01-08] MEDS: Morphine 2 MG/ML SYRINGE IV PRN ×4 (00:13→12:50)
[2022-01-08] MEDS: CMC:Venlafaxine 25 mg TAB (NF) PO SCH (08:34)
[2022-01-08] MEDS: Aspirin EC 325 mg TAB.EC PO SCH (08:35)
[2022-01-08] MEDS: Sulfamethox/Trimethoprim DS TAB 800/160 mg PO SCH (08:35)
[2022-01-08] MEDS: Lisdexamfetamine 10 mg CAP(NF) PO SCH (08:35)
[2022-01-08] MEDS: Nicotine GUM 4MG FRUIT FLAVOR PO PRN (08:38)
[2022-01-08] MEDS: Nicotine Lozenge mini 4 MG LOZNG.MINI MT PRN ×2 (10:41→12:51)
[2022-01-08 11:08] VITALS: BP 117/78
== END 2022-01-08 12:37 | disposition swing bed (61) | DRG 603 ==
LOC: ED 07:14 → SUATTDRO 10:41 → EDHOLD 10:41 → MEDTELE 13:02
PROVIDERS: ADMIT Student in an Organized Health Care Education/Training Program; ATTEND Hospitalist

== ENCOUNTER 2022-01-08 12:54 | Inpatient (IN) ==
[2022-01-08] MEDS ORDERED: Morphine 2 MG/ML SYRINGE IV PRN (17:18)
[2022-01-08] MEDS: Enoxaparin 40 MG/0.4 ML SYR SUBCUT SCH (17:36)
[2022-01-08] MEDS: Morphine 2 MG/ML SYRINGE IV PRN ×2 (17:36→21:42)
[2022-01-08] MEDS: Sulfamethox/Trimethoprim DS TAB 800/160 mg PO SCH (20:41)
[2022-01-08] MEDS: Nicotine Lozenge mini 4 MG LOZNG.MINI MT PRN (21:43)
[2022-01-09] MEDS: Morphine 2 MG/ML SYRINGE IV PRN ×3 (02:32→20:01)
[2022-01-09] MEDS: Lisdexamfetamine 10 mg CAP(NF) PO SCH (09:00)
[2022-01-09] MEDS: Venlafaxine 25 mg TAB (NF) PO SCH (09:02)
[2022-01-09] MEDS: Sulfamethox/Trimethoprim DS TAB 800/160 mg PO SCH ×2 (09:03→20:01)
[2022-01-09] MEDS: Nicotine Lozenge mini 4 MG LOZNG.MINI MT PRN ×4 (09:06→20:06)
[2022-01-09] MEDS: Enoxaparin 40 MG/0.4 ML SYR SUBCUT SCH (17:33)
[2022-01-09] MEDS: Nicotine GUM 4MG FRUIT FLAVOR PO PRN (21:46)
[2022-01-10] MEDS: Lisdexamfetamine 10 mg CAP(NF) PO SCH (08:26)
[2022-01-10] MEDS: Nicotine Lozenge mini 4 MG LOZNG.MINI MT PRN ×6 (08:28→22:36)
[2022-01-10] MEDS: Sulfamethox/Trimethoprim DS TAB 800/160 mg PO SCH ×2 (08:28→19:54)
[2022-01-10] MEDS: Venlafaxine 25 mg TAB (NF) PO SCH (08:28)
[2022-01-10] MEDS: Nicotine GUM 4MG FRUIT FLAVOR PO PRN ×2 (10:18→15:57)
[2022-01-10] MEDS: Enoxaparin 40 MG/0.4 ML SYR SUBCUT SCH (15:57)
[2022-01-11] MEDS: Nicotine Lozenge mini 4 MG LOZNG.MINI MT PRN ×6 (02:42→19:53)
[2022-01-11] MEDS: Venlafaxine 25 mg TAB (NF) PO SCH (08:57)
[2022-01-11] MEDS: Sulfamethox/Trimethoprim DS TAB 800/160 mg PO SCH ×2 (08:59→21:14)
[2022-01-11] MEDS ORDERED: Lisdexamfetamine 10 mg CAP(NF) PO ONE (09:36)
[2022-01-11] MEDS: Lisdexamfetamine 10 mg CAP(NF) PO SCH (09:38)
[2022-01-11] MEDS: Enoxaparin 40 MG/0.4 ML SYR SUBCUT SCH (16:41)
[2022-01-12] MEDS: Nicotine Lozenge mini 4 MG LOZNG.MINI MT PRN ×6 (03:11→21:36)
[2022-01-12] MEDS: Lisdexamfetamine 10 mg CAP(NF) PO SCH (08:58)
[2022-01-12] MEDS: Sulfamethox/Trimethoprim DS TAB 800/160 mg PO SCH ×2 (09:00→19:31)
[2022-01-12] MEDS: Venlafaxine 25 mg TAB (NF) PO SCH (09:00)
[2022-01-12] MEDS ORDERED: HYDROmorphone 0.5 MG/0.5 ML SYRINGE IV SLOW PU ONE (14:54)
[2022-01-12] MEDS: Enoxaparin 40 MG/0.4 ML SYR SUBCUT SCH (16:33)
[2022-01-13] MEDS: Nicotine Lozenge mini 4 MG LOZNG.MINI MT PRN ×5 (01:40→20:41)
[2022-01-13] MEDS: Lisdexamfetamine 10 mg CAP(NF) PO SCH (08:56)
[2022-01-13] MEDS: Sulfamethox/Trimethoprim DS TAB 800/160 mg PO SCH ×2 (08:57→20:34)
[2022-01-13] MEDS: Venlafaxine 25 mg TAB (NF) PO SCH (08:58)
[2022-01-13] MEDS: Nicotine GUM 4MG FRUIT FLAVOR PO PRN ×3 (10:28→18:38)
[2022-01-13] MEDS: Enoxaparin 40 MG/0.4 ML SYR SUBCUT SCH (16:41)
[2022-01-14] MEDS: Venlafaxine 25 mg TAB (NF) PO SCH (08:13)
[2022-01-14] MEDS: Sulfamethox/Trimethoprim DS TAB 800/160 mg PO SCH ×2 (08:30→19:48)
[2022-01-14] MEDS: Lisdexamfetamine 10 mg CAP(NF) PO SCH (08:30)
[2022-01-14 09:45] LABS: Hematocrit 38 % (42-52); Hemoglobin 12.8 g/dL (14.0-18.0); Mean Platelet Volume 7.5 fL (7.4-10.4); Platelet Count 224 10^3/uL (150-450)
[2022-01-14] MEDS: Nicotine Lozenge mini 4 MG LOZNG.MINI MT PRN ×4 (09:56→22:50)
[2022-01-14 10:11] LABS: eGFR CKD-EPI 111.3 (>60)
[2022-01-14] MEDS: Nicotine GUM 4MG FRUIT FLAVOR PO PRN ×3 (10:33→19:47)
[2022-01-14] MEDS: Enoxaparin 40 MG/0.4 ML SYR SUBCUT SCH (18:21)
[2022-01-15 07:51] VITALS: BP 105/61
[2022-01-15] MEDS: Sulfamethox/Trimethoprim DS TAB 800/160 mg PO SCH (08:20)
[2022-01-15] MEDS: Venlafaxine 25 mg TAB (NF) PO SCH (08:21)
[2022-01-15] MEDS: Lisdexamfetamine 10 mg CAP(NF) PO SCH (08:23)
== END 2022-01-15 09:10 | disposition home or self-care (01) | DRG 603 ==
LOC: MEDTELE 12:54 → SUATTDRO 12:54 → MED 01-14 02:31
PROVIDERS: ADMIT Nurse Practitioner Family; ATTEND Hospitalist

== ENCOUNTER 2022-03-05 19:44 | Inpatient (IN) ==
[2022-03-05 21:27] LABS: ABS Basophils 0.1 10^3/ul (0-0.2); ABS Eosinophils 0.3 10^3/ul (0-0.6); ABS Lymphocytes 1.6 10^3/ul (1.0-4.8); ABS Monocytes 0.5 10^3/ul (0-0.8); ABS Neutrophils 3.6 10^3/ul (1.5-7.7); Eosinophil % 4.2 %; Hematocrit 36 % (42-52); Hemoglobin 12.3 g/dL (14.0-18.0); Lymphocyte % 27.1 %; Mean Corpuscular HGB Conc 34 g/dL (31-36); Mean Corpuscular Hemoglobin 29 pg (27-31); Mean Corpuscular Volume 84 fL (80-94); Mean Platelet Volume 7.2 fL (7.4-10.4); Platelet Count 259 10^3/uL (150-450); Red Blood Count 4.31 10^6 /uL (4.18-5.48); Red Cell Distribution Width 14 % (10-15); White Blood Count 6.1 10^3/uL (3.5-10.8)
[2022-03-05] MEDS ORDERED: oxyCODONE SR 10 mg TAB PO ONE (21:38)
[2022-03-05] MEDS ORDERED: Vancomycin 1,000 MG in NS 0.9% 250 ml 250 ML IVPB ONE (21:40)
[2022-03-05] MEDS ORDERED: NS 0.9% 1000 ml BAG 1,000 ML IV SCH (21:45)
[2022-03-05] MEDS: fentaNYL 100 mcg/2 ml 50 MCG/ML VIAL IV SLOW PU PRN (21:47)
[2022-03-05 21:54] LABS: Albumin 3.8 g/dL (3.2-5.2); Albumin/Globulin Ratio 1.3 (1-3); C Reactive Protein 122.8 mg/L (<8.01); Calcium 9.2 mg/dL (8.6-10.3); Potassium 4.1 mmol/L (3.5-5.0); Total Bilirubin 0.4 mg/dL (0.2-1.0); Total Protein 6.8 g/dL (6.4-8.9); eGFR CKD-EPI 119.6 (>60)
[2022-03-05] MEDS ORDERED: Vancomycin 1,750 MG in NS 0.9% 500 ml BAG 500 ML IVPB ONE (22:00)
[2022-03-05] MEDS ORDERED: Vancomycin per Pharmacy 1 EA NOTE FOLLOW UP SCH (22:00)
[2022-03-05 22:33] LABS: Erythrocyte Sed Rate 60 mm/Hr (0-14)
[2022-03-05] MEDS: Clindamycin 600 MG/D5W BAG 600 MG/50 ML BAG IV SCH (22:48)
[2022-03-05] MEDS ORDERED: fentaNYL 100 mcg/2 ml 50 MCG/ML VIAL IV SLOW PU ONE (23:26)
[2022-03-06 03:41] LABS: Urine Appearance Clear; Urine Bilirubin Negative (Negative); Urine Blood Negative (Negative); Urine Color Yellow; Urine Glucose Negative (Negative); Urine Ketones Negative (Negative); Urine Protein Negative (Negative); Urine Specific Gravity <=1.005 (1.005-1.030); Urine Urobilinogen 0.2 (Negative) (Negative)
[2022-03-06 03:42] LABS: Urine Nitrite Negative (Negative)
[2022-03-06] MEDS: Clindamycin 600 MG/D5W BAG 600 MG/50 ML BAG IV SCH ×4 (06:08→23:03)
[2022-03-06] MEDS ORDERED: fentaNYL 100 mcg/2 ml 50 MCG/ML VIAL IV SLOW PU ONE (08:28)
[2022-03-06] MEDS: CMCS: Venlafaxine 25 mg TAB (NF) PO SCH ×2 (08:56→19:59)
[2022-03-06] MEDS ORDERED: LISDEXAMFETAMINE 70 MG PO SCH (09:00)
[2022-03-06] MEDS: Lisdexamfetamine 10 mg CAP(NF) PO SCH (10:15)
[2022-03-06] MEDS ORDERED: Vancomycin 1,500 MG in NS 0.9% 250 ml 250 ML IVPB SCH (12:00)
[2022-03-06] MEDS: fentaNYL 100 mcg/2 ml 50 MCG/ML VIAL IV SLOW PU PRN (20:08)
[2022-03-07] MEDS: fentaNYL 100 mcg/2 ml 50 MCG/ML VIAL IV SLOW PU PRN ×6 (01:44→21:17)
[2022-03-07] MEDS: Clindamycin 600 MG/D5W BAG 600 MG/50 ML BAG IV SCH ×2 (05:51→15:16)
[2022-03-07 06:21] LABS: ABS Eosinophils 0.1 10^3/ul (0-0.6); ABS Lymphocytes 1.8 10^3/ul (1.0-4.8); ABS Monocytes 0.4 10^3/ul (0-0.8); ABS Neutrophils 2.1 10^3/ul (1.5-7.7); Eosinophil % 2.9 %; Hematocrit 37 % (42-52); Hemoglobin 12.5 g/dL (14.0-18.0); Lymphocyte % 40.4 %; Mean Corpuscular HGB Conc 34 g/dL (31-36); Mean Corpuscular Hemoglobin 29 pg (27-31); Mean Corpuscular Volume 87 fL (80-94); Nucleated Red Blood Cells % 0.3; Platelet Count 217 10^3/uL (150-450); Red Blood Count 4.29 10^6 /uL (4.18-5.48); Red Cell Distribution Width 13 % (10-15); White Blood Count 4.4 10^3/uL (3.5-10.8)
[2022-03-07 06:22] LABS: Albumin 3.5 g/dL (3.2-5.2); Calcium 8.9 mg/dL (8.6-10.3); Magnesium 2.1 mg/dL (1.9-2.7); Total Bilirubin 0.2 mg/dL (0.2-1.0)
[2022-03-07 06:28] LABS: Albumin/Globulin Ratio 1.1 (1-3); Globulin 3.1 g/dL (2-4); Total Protein 6.6 g/dL (6.4-8.9)
[2022-03-07 06:29] LABS: Potassium 4.6 mmol/L (3.5-5.0)
[2022-03-07] MEDS ORDERED: Ondansetron 4 mg VIAL 2 MG/ML 2 ml VIAL IV PRN (07:48)
[2022-03-07] MEDS ORDERED: fentaNYL 250 mcg/5 ml 50 MCG/ML 5 ml VIAL (250 MCG) ONE (08:03)
[2022-03-07] MEDS ORDERED: Midazolam 2 mg/2 ml VIAL 1 mg/ml 2 ml VIAL (2 mg) ONE (08:03)
[2022-03-07] MEDS ORDERED: Lidocaine 2% PF 5 ML VIAL ONE (08:14)
[2022-03-07] MEDS ORDERED: Propofol 10 MG/ML 20 ML BTL ONE ×2 (08:15→08:36)
[2022-03-07] MEDS ORDERED: Acetaminophen IV 1 GM/100ML 1,000 MG/100 ML BAG IV ONE (08:36)
[2022-03-07] MEDS ORDERED: Ondansetron 4 mg VIAL 2 MG/ML 2 ml VIAL ONE (08:40)
[2022-03-07] MEDS ORDERED: fentaNYL 100 mcg/2 ml 50 MCG/ML VIAL ONE ×3 (09:21→09:38)
[2022-03-07] MEDS: fentaNYL 100 mcg/2 ml 50 MCG/ML VIAL IV PRN ×5 (09:22→09:42)
[2022-03-07] MEDS: CMCS: Venlafaxine 25 mg TAB (NF) PO SCH ×2 (10:22→21:16)
[2022-03-07] MEDS: Lisdexamfetamine 10 mg CAP(NF) PO SCH (10:28)
[2022-03-07] MEDS ORDERED: Vancomycin Trough Check NOTE FOLLOW UP ONE (11:30)
[2022-03-07] MEDS: Nicotine GUM 4MG FRUIT FLAVOR PO PRN (21:17)
[2022-03-08] MEDS: Clindamycin 600 MG/NS BAG(*) 600 MG/50 ML BAG IV SCH ×3 (00:02→15:41)
[2022-03-08] MEDS: Clindamycin 600 MG/D5W BAG 600 MG/50 ML BAG IV SCH (00:02)
[2022-03-08] MEDS: fentaNYL 100 mcg/2 ml 50 MCG/ML VIAL IV SLOW PU PRN ×5 (01:23→22:29)
[2022-03-08 06:05] LABS: ABS Basophils 0.1 10^3/ul (0-0.2); ABS Eosinophils 0.2 10^3/ul (0-0.6); ABS Lymphocytes 1.5 10^3/ul (1.0-4.8); ABS Monocytes 0.4 10^3/ul (0-0.8); ABS Neutrophils 4.4 10^3/ul (1.5-7.7); Eosinophil % 2.5 %; Hematocrit 36 % (42-52); Hemoglobin 12.6 g/dL (14.0-18.0); Lymphocyte % 22.8 %; Mean Corpuscular HGB Conc 35 g/dL (31-36); Mean Corpuscular Hemoglobin 30 pg (27-31); Mean Corpuscular Volume 85 fL (80-94); Mean Platelet Volume 7.7 fL (7.4-10.4); Platelet Count 244 10^3/uL (150-450); Red Blood Count 4.19 10^6 /uL (4.18-5.48); Red Cell Distribution Width 14 % (10-15); White Blood Count 6.5 10^3/uL (3.5-10.8)
[2022-03-08 06:25] LABS: Calcium 9.1 mg/dL (8.6-10.3); Magnesium 1.9 mg/dL (1.9-2.7); Potassium 4.2 mmol/L (3.5-5.0); eGFR CKD-EPI 114.2 (>60)
[2022-03-08] MEDS: Lisdexamfetamine 10 mg CAP(NF) PO SCH (07:53)
[2022-03-08] MEDS: CMCS: Venlafaxine 25 mg TAB (NF) PO SCH ×2 (07:55→19:49)
[2022-03-09] MEDS: Clindamycin 600 MG/NS BAG(*) 600 MG/50 ML BAG IV SCH ×2 (01:21→11:24)
[2022-03-09] MEDS: fentaNYL 100 mcg/2 ml 50 MCG/ML VIAL IV SLOW PU PRN ×3 (03:03→20:49)
[2022-03-09] MEDS: Lisdexamfetamine 10 mg CAP(NF) PO SCH (08:43)
[2022-03-09] MEDS: CMCS: Venlafaxine 25 mg TAB (NF) PO SCH ×2 (08:48→20:47)
[2022-03-09] MEDS ORDERED: Vancomycin 1,500 MG in NS 0.9% 250 ml 250 ML IVPB ONE (10:30)
[2022-03-09] MEDS ORDERED: Vancomycin per Pharmacy 1 EA NOTE FOLLOW UP SCH (11:00)
[2022-03-09] MEDS: Vancomycin 1,250 MG in NS 0.9% 250 ml 250 ML IVPB SCH (23:24)
[2022-03-10] MEDS: fentaNYL 100 mcg/2 ml 50 MCG/ML VIAL IV SLOW PU PRN ×3 (05:21→22:40)
[2022-03-10] MEDS: Vancomycin 1,250 MG in NS 0.9% 250 ml 250 ML IVPB SCH ×3 (05:21→22:40)
[2022-03-10] MEDS: Lisdexamfetamine 10 mg CAP(NF) PO SCH (08:16)
[2022-03-10] MEDS: CMCS: Venlafaxine 25 mg TAB (NF) PO SCH ×2 (08:17→21:01)
[2022-03-10] MEDS: Nicotine GUM 4MG FRUIT FLAVOR PO PRN (12:40)
[2022-03-10] MEDS ORDERED: Vancomycin Trough Check NOTE FOLLOW UP ONE (13:30)
[2022-03-10 14:28] LABS: Vancomycin Trough 16.9 mcg/mL
[2022-03-10] MEDS ORDERED: HYDROmorphone 1 MG/1 ML SYRINGE IV ONE (16:00)
[2022-03-11] MEDS: Vancomycin 1,250 MG in NS 0.9% 250 ml 250 ML IVPB SCH ×2 (05:11→13:33)
[2022-03-11] MEDS: fentaNYL 100 mcg/2 ml 50 MCG/ML VIAL IV SLOW PU PRN (07:11)
[2022-03-11] MEDS: Lisdexamfetamine 10 mg CAP(NF) PO SCH (09:11)
[2022-03-11] MEDS: CMCS: Venlafaxine 25 mg TAB (NF) PO SCH (09:11)
[2022-03-11 13:15] VITALS: BP 114/78
[2022-03-11] MEDS: Nicotine GUM 4MG FRUIT FLAVOR PO PRN (14:32)
[2022-03-12] MEDS ORDERED: Vancomycin Trough Check NOTE FOLLOW UP ONE (13:30)
== END 2022-03-11 15:00 | disposition swing bed (61) | DRG 558 ==
LOC: ED 19:44 → SUATTDRO 21:40 → EDHOLD 21:40 → MEDTELE 23:37
PROVIDERS: ADMIT Hospitalist; ATTEND Internal Medicine

== ENCOUNTER 2022-03-11 15:32 | Inpatient (IN) ==
[2022-03-11] MEDS ORDERED: Vancomycin per Pharmacy 1 EA NOTE FOLLOW UP SCH (16:00)
[2022-03-11] MEDS: fentaNYL 100 mcg/2 ml 50 MCG/ML VIAL IV SLOW PU PRN (16:29)
[2022-03-11] MEDS: Nicotine GUM 4MG FRUIT FLAVOR PO PRN ×2 (16:37→21:36)
[2022-03-11] MEDS: Vancomycin 1,250 MG in NS 0.9% 250 ml 250 ML IVPB SCH (21:34)
[2022-03-11] MEDS: CMCS:Venlafaxine 25 mg TAB (NF) PO SCH (21:35)
[2022-03-12] MEDS ORDERED: Vancomycin Trough Check NOTE FOLLOW UP ONE (05:30)
[2022-03-12 08:27] LABS: Vancomycin Trough 16.3 mcg/mL
[2022-03-12] MEDS: Vancomycin 1,250 MG in NS 0.9% 250 ml 250 ML IVPB SCH ×3 (09:14→23:16)
[2022-03-12] MEDS: CMCS:Venlafaxine 25 mg TAB (NF) PO SCH ×2 (09:15→20:06)
[2022-03-12] MEDS: Nicotine GUM 4MG FRUIT FLAVOR PO PRN ×5 (09:15→19:03)
[2022-03-12] MEDS: Lisdexamfetamine 10 mg CAP(NF) PO SCH (09:16)
[2022-03-12] MEDS: fentaNYL 100 mcg/2 ml 50 MCG/ML VIAL IV SLOW PU PRN (13:03)
[2022-03-13] MEDS: Vancomycin 1,250 MG in NS 0.9% 250 ml 250 ML IVPB SCH ×3 (05:18→22:01)
[2022-03-13] MEDS: Lisdexamfetamine 10 mg CAP(NF) PO SCH (07:42)
[2022-03-13] MEDS: CMCS:Venlafaxine 25 mg TAB (NF) PO SCH ×2 (07:42→20:24)
[2022-03-13] MEDS: Nicotine GUM 4MG FRUIT FLAVOR PO PRN ×3 (09:45→20:24)
[2022-03-14] MEDS: Vancomycin 1,250 MG in NS 0.9% 250 ml 250 ML IVPB SCH ×3 (05:18→21:32)
[2022-03-14] MEDS: Lisdexamfetamine 10 mg CAP(NF) PO SCH (09:14)
[2022-03-14] MEDS: CMCS:Venlafaxine 25 mg TAB (NF) PO SCH ×2 (09:15→21:31)
[2022-03-14] MEDS: Nicotine GUM 4MG FRUIT FLAVOR PO PRN ×4 (09:25→21:32)
[2022-03-15] MEDS ORDERED: Vancomycin Trough Check NOTE FOLLOW UP ONE (06:00)
[2022-03-15] MEDS: Lisdexamfetamine 10 mg CAP(NF) PO SCH (08:19)
[2022-03-15] MEDS: Vancomycin 1,250 MG in NS 0.9% 250 ml 250 ML IVPB SCH ×3 (08:21→23:28)
[2022-03-15] MEDS: Nicotine GUM 4MG FRUIT FLAVOR PO PRN ×3 (09:43→16:53)
[2022-03-15] MEDS: CMCS:Venlafaxine 25 mg TAB (NF) PO SCH ×2 (14:35→21:28)
[2022-03-15] MEDS: Nicotine Lozenge mini 4 MG LOZNG.MINI MT PRN ×2 (14:36→17:11)
[2022-03-15] MEDS: Nicotine PATCH 21 MG/24 HR PATCH TRANSDERM SCH (14:40)
[2022-03-16] MEDS: Nicotine PATCH 21 MG/24 HR PATCH TRANSDERM SCH (08:29)
[2022-03-16] MEDS: Nicotine Lozenge mini 4 MG LOZNG.MINI MT PRN ×4 (08:29→22:24)
[2022-03-16] MEDS: Lisdexamfetamine 10 mg CAP(NF) PO SCH (08:47)
[2022-03-16] MEDS: CMCS:Venlafaxine 25 mg TAB (NF) PO SCH ×2 (08:56→21:44)
[2022-03-16] MEDS: Nicotine GUM 4MG FRUIT FLAVOR PO PRN ×2 (11:19→14:59)
[2022-03-16 11:22] LABS: ABS Basophils 0.1 10^3/ul (0-0.2); ABS Eosinophils 0.2 10^3/ul (0-0.6); ABS Lymphocytes 2.5 10^3/ul (1.0-4.8); ABS Monocytes 0.6 10^3/ul (0-0.8); ABS Neutrophils 4.7 10^3/ul (1.5-7.7); Eosinophil % 2.5 %; Hematocrit 40 % (42-52); Hemoglobin 13.8 g/dL (14.0-18.0); Lymphocyte % 31.3 %; Mean Corpuscular HGB Conc 35 g/dL (31-36); Mean Corpuscular Hemoglobin 30 pg (27-31); Mean Corpuscular Volume 85 fL (80-94); Mean Platelet Volume 7.4 fL (7.4-10.4); Platelet Count 300 10^3/uL (150-450); Red Blood Count 4.68 10^6 /uL (4.18-5.48); Red Cell Distribution Width 14 % (10-15); White Blood Count 8.1 10^3/uL (3.5-10.8)
[2022-03-16 12:04] LABS: Albumin 4.2 g/dL (3.2-5.2); Albumin/Globulin Ratio 1.2 (1-3); C Reactive Protein 5.68 mg/L (<8.01); Calcium 9.8 mg/dL (8.6-10.3); Globulin 3.5 g/dL (2-4); Potassium 4.5 mmol/L (3.5-5.0); Total Bilirubin 0.2 mg/dL (0.2-1.0); Total Protein 7.7 g/dL (6.4-8.9); eGFR CKD-EPI 118.5 (>60)
[2022-03-16] MEDS: Vancomycin 1,250 MG in NS 0.9% 250 ml 250 ML IVPB SCH ×2 (12:15→18:09)
[2022-03-17] MEDS: Vancomycin 1,250 MG in NS 0.9% 250 ml 250 ML IVPB SCH ×4 (02:00→17:57)
[2022-03-17] MEDS: Lisdexamfetamine 10 mg CAP(NF) PO SCH (08:39)
[2022-03-17] MEDS: Nicotine Lozenge mini 4 MG LOZNG.MINI MT PRN ×5 (08:40→21:25)
[2022-03-17] MEDS: Nicotine PATCH 21 MG/24 HR PATCH TRANSDERM SCH (08:40)
[2022-03-17] MEDS: CMCS:Venlafaxine 25 mg TAB (NF) PO SCH ×2 (08:56→21:27)
[2022-03-17] MEDS: Nicotine GUM 4MG FRUIT FLAVOR PO PRN ×4 (10:14→19:55)
[2022-03-18] MEDS: Vancomycin 1,250 MG in NS 0.9% 250 ml 250 ML IVPB SCH ×3 (02:19→17:50)
[2022-03-18] MEDS: Nicotine Lozenge mini 4 MG LOZNG.MINI MT PRN ×7 (02:38→20:07)
[2022-03-18 07:33] VITALS: BP 114/76
[2022-03-18] MEDS: CMCS:Venlafaxine 25 mg TAB (NF) PO SCH ×2 (07:35→21:16)
[2022-03-18] MEDS: Lisdexamfetamine 10 mg CAP(NF) PO SCH (07:35)
[2022-03-18] MEDS: Nicotine PATCH 21 MG/24 HR PATCH TRANSDERM SCH (07:36)
[2022-03-18] MEDS: Nicotine GUM 4MG FRUIT FLAVOR PO PRN ×4 (09:16→21:19)
[2022-03-18] MEDS ORDERED: Vancomycin Trough Check NOTE FOLLOW UP ONE (09:30)
[2022-03-18 10:09] LABS: eGFR CKD-EPI 115.5 (>60)
[2022-03-19] MEDS: Nicotine Lozenge mini 4 MG LOZNG.MINI MT PRN ×3 (00:35→12:30)
[2022-03-19] MEDS: Vancomycin 1,250 MG in NS 0.9% 250 ml 250 ML IVPB SCH (01:31)
[2022-03-19] MEDS: Nicotine PATCH 21 MG/24 HR PATCH TRANSDERM SCH (07:43)
[2022-03-19] MEDS: Lisdexamfetamine 10 mg CAP(NF) PO SCH (07:43)
[2022-03-19] MEDS: CMCS:Venlafaxine 25 mg TAB (NF) PO SCH (07:44)
[2022-03-19] MEDS: Nicotine GUM 4MG FRUIT FLAVOR PO PRN ×2 (09:54→12:30)
[2022-03-19] MEDS ORDERED: DALVANCE 1500 MG IV ONCE (for CrCl >/= 30 or regular HD) IVPB ONE (12:00)
[2022-03-19] MEDS ORDERED: DALBAVANCIN HCL (NF) 500 MG/25 ML VIAL IVPB ONE (12:00)
== END 2022-03-19 13:26 | disposition home or self-care (01) | DRG 603 ==
LOC: SUATTDRO 15:32 → MEDTELE 15:32 → SSU 03-15 05:34
PROVIDERS: ADMIT Nurse Practitioner Family; ATTEND Internal Medicine

== ENCOUNTER 2023-05-31 13:20 | Inpatient (IN) ==
[2023-05-31] MEDS ORDERED: Lactated Ringers 1000 ml BAG 1,000 ML IV ONE ×2 (16:46→16:55)
[2023-05-31] MEDS ORDERED: metroNIDAZOLE IV 500 MG/100ML 500 MG/100 ML BAG IVPB ONE (16:46)
[2023-05-31] MEDS ORDERED: Cefepime 2 GM in Dextrose 2 GM/50 ML BAG IV ONE (16:46)
[2023-05-31] MEDS ORDERED: Vancomycin 1,250 MG in NS 0.9% 250 ml 250 ML IVPB ONE (17:00)
[2023-05-31] MEDS ORDERED: Morphine 4 MG/ML VIAL (1 ml) IV ONE ×2 (19:36→20:54)
[2023-05-31] MEDS ORDERED: Ondansetron 4 mg VIAL 2 MG/ML 2 ml VIAL IV ONE (19:36)
[2023-05-31 19:51] LABS: ABS Eosinophils 0.2 10^3/uL (0.0-0.5); ABS Lymphocytes 1.7 10^3/uL (1.0-4.8); ABS Monocytes 0.4 10^3/uL (0.0-1.1); ABS Neutrophils 6.8 10^3/uL (1.5-7.6); Eosinophil % 1.8 %; Hematocrit 37.9 % (38-53); Hemoglobin 13.1 g/dL (13.2-16.3); Lymphocyte % 18.8 %; Mean Corpuscular Hgb Conc 34.5 g/dL (31-36); Mean Platelet Volume 6.9 fL (7.5-11.2); Platelet Count 387 10^3/uL (150-450); Red Blood Count 4.52 10^6/uL (4.06-5.63)
[2023-05-31 20:02] LABS: Albumin 3.4 g/dL (3.2-5.2); Albumin/Globulin Ratio 0.8 (1-3); C Reactive Protein 119.64 mg/L (<8.01); Calcium 9.1 mg/dL (8.6-10.3); Creatinine, Serum 0.76 mg/dL (0.67-1.17); Globulin 4.5 g/dL (2-4); Total Bilirubin 0.2 mg/dL (0.2-1.0); Total Protein 7.9 g/dL (6.4-8.9); eGFR CKD-EPI 114.4 (>60)
[2023-05-31 21:32] LABS: Erythrocyte Sed Rate 88 mm/Hr (0-14)
[2023-05-31] MEDS ORDERED: Polyethylene Glycol 3350 17 GM PACKET PO PRN (23:39)
[2023-05-31] MEDS ORDERED: Vancomycin per Pharmacy 1 EA NOTE FOLLOW UP SCH (23:45)
[2023-06-01] MEDS ORDERED: Gadoteridol (CONTRAST) 279.3 MG/ML 10 ML IV ONE (00:52)
[2023-06-01] MEDS: Enoxaparin 40 MG/0.4 ML SYR SUBCUT SCH ×2 (01:57→20:51)
[2023-06-01] MEDS ORDERED: Vancomycin 1,500 MG in NS 0.9% 250 ml 250 ML IVPB ONE (03:00)
[2023-06-01] MEDS: CMCS:Venlafaxine 25 mg TAB (NF) PO SCH ×2 (09:21→20:35)
[2023-06-01] MEDS: LISDEXAMFETAMINE 10 MG PO SCH (09:22)
[2023-06-01 10:01] LABS: ABS Eosinophils 0.1 10^3/uL (0.0-0.5); ABS Lymphocytes 1.2 10^3/uL (1.0-4.8); ABS Monocytes 0.5 10^3/uL (0.0-1.1); ABS Nucleated RBC 0.01 10^3/ul; Eosinophil % 1.3 %; Hematocrit 34.3 % (38-53); Hemoglobin 11.9 g/dL (13.2-16.3); Mean Corpuscular Hgb Conc 34.7 g/dL (31-36); Mean Corpuscular Volume 83.7 fL (80-97); Mean Platelet Volume 6.9 fL (7.5-11.2); Nucleated Red Blood Cells % 0.1 %/100WBC (0.0-0.8); Platelet Count 377 10^3/uL (150-450); White Blood Count 8.9 10^3/uL (3.6-10.2)
[2023-06-01 10:21] LABS: Calcium 8.5 mg/dL (8.6-10.3); Creatinine, Serum 0.71 mg/dL (0.67-1.17); Magnesium 1.9 mg/dL (1.9-2.7); eGFR CKD-EPI 116.7 (>60)
[2023-06-01] MEDS: Vancomycin 1,250 MG in NS 0.9% 250 ml 250 ML IVPB SCH ×2 (15:14→20:40)
[2023-06-01] MEDS ORDERED: Haloperidol 5 mg/ml SDV IV/IM 5 MG/ML AMP IV SLOW PU PRN (15:24)
[2023-06-01] MEDS ORDERED: Lorazepam PYXIS KEY PRN (15:44)
[2023-06-01] MEDS ORDERED: oxyCODONE SR 15 mg TAB PO SCH (16:00)
[2023-06-01] MEDS: oxyCODONE SR 15 mg TAB PO SCH (16:31)
[2023-06-02] MEDS: oxyCODONE SR 15 mg TAB PO SCH ×3 (00:23→22:00)
[2023-06-02] MEDS: Vancomycin 1,250 MG in NS 0.9% 250 ml 250 ML IVPB SCH ×3 (04:40→22:20)
[2023-06-02] MEDS: Ondansetron ODT 4 mg TAB 4 MG TAB SL PRN ×2 (05:19→09:26)
[2023-06-02] MEDS: CMCS:Venlafaxine 25 mg TAB (NF) PO SCH ×2 (07:15→22:19)
[2023-06-02] MEDS: LISDEXAMFETAMINE 10 MG PO SCH (07:17)
[2023-06-02 07:52] LABS: ABS Basophils 0.1 10^3/uL (0.0-0.1); ABS Eosinophils 0.1 10^3/uL (0.0-0.5); ABS Lymphocytes 2.3 10^3/uL (1.0-4.8); ABS Monocytes 0.5 10^3/uL (0.0-1.1); ABS Neutrophils 8.3 10^3/uL (1.5-7.6); ABS Nucleated RBC 0.02 10^3/ul; Eosinophil % 0.8 %; Hemoglobin 12.3 g/dL (13.2-16.3); Lymphocyte % 20.3 %; Mean Corpuscular Hemoglobin 28.8 pg (27-33); Mean Corpuscular Hgb Conc 34.2 g/dL (31-36); Mean Corpuscular Volume 84.2 fL (80-97); Mean Platelet Volume 6.8 fL (7.5-11.2); Nucleated Red Blood Cells % 0.2 %/100WBC (0.0-0.8); Platelet Count 396 10^3/uL (150-450); Red Blood Count 4.28 10^6/uL (4.06-5.63); Red Cell Distribution Width 13.7 % (12-17); White Blood Count 11.3 10^3/uL (3.6-10.2)
[2023-06-02 08:24] LABS: Anion Gap 12 mmol/L (2-16); Blood Urea Nitrogen 7 mg/dL (6-24); CO2 Carbon Dioxide 20 mmol/L (22-32); Calcium 8.3 mg/dL (8.6-10.3); Chloride 107 mmol/L (101-111); Creatinine, Serum 0.68 mg/dL (0.67-1.17); Glucose 140 mg/dL (70-100); Magnesium 1.9 mg/dL (1.9-2.7); Sodium 139 mmol/L (135-145); eGFR CKD-EPI 118.3 (>60)
[2023-06-02] MEDS ORDERED: Vancomycin Trough Check NOTE FOLLOW UP ONE (12:30)
[2023-06-02] MEDS ORDERED: Midazolam 5 mg/5 ml VIAL 1 mg/ml 5 ml VIAL (5 mg) ONE ×2 (13:26→16:11)
[2023-06-02] MEDS ORDERED: LORazepam 2 mg VIAL 1 ml ONE (13:26)
[2023-06-02] MEDS: LORazepam 2 mg VIAL 1 ml IV PUSH PRN (13:39)
[2023-06-02] MEDS ORDERED: HYDROmorphone 1 MG/1 ML SYRINGE ONE ×4 (14:22→18:52)
[2023-06-02] MEDS: HYDROmorphone 1 MG/1 ML SYRINGE IV PRN ×4 (14:23→16:21)
[2023-06-02] MEDS ORDERED: Midazolam 2 mg/2 ml VIAL 1 mg/ml 2 ml VIAL (2 mg) ONE (14:58)
[2023-06-02] MEDS ORDERED: fentaNYL 100 mcg/2 ml 50 MCG/ML VIAL ONE (14:58)
[2023-06-02] MEDS ORDERED: Lidocaine 2% PF 5 ML VIAL ONE (14:59)
[2023-06-02] MEDS ORDERED: Propofol 10 MG/ML 20 ML BTL ONE (14:59)
[2023-06-02] MEDS ORDERED: Dexamethasone IV 4 MG/ML VIAL 1 ml VIAL ONE (14:59)
[2023-06-02] MEDS ORDERED: Ondansetron 4 mg VIAL 2 MG/ML 2 ml VIAL ONE (14:59)
[2023-06-02] MEDS ORDERED: Sevoflurane BOTTLE ONE ×2 (15:02→17:22)
[2023-06-02] MEDS ORDERED: Bupivacaine 0.25% SDV 30 ML ONE ×3 (16:08→16:29)
[2023-06-02] MEDS ORDERED: HYDROmorphone 0.5 MG/0.5 ML SYRINGE ONE ×3 (16:18→17:15)
[2023-06-02] MEDS ORDERED: KETAMINE HCL 10 MG/ML 20 ml VIAL (200 MG) ONE (16:48)
[2023-06-02] MEDS ORDERED: Glycopyrrolate IV 0.2 MG/ML 1 ML VIAL ONE (17:01)
[2023-06-02] MEDS ORDERED: Naloxone 0.4 mg VIAL 0.4 mg/ml 1 ml VIAL IV PRN (17:02)
[2023-06-02] MEDS ORDERED: Ondansetron 4 mg VIAL 2 MG/ML 2 ml VIAL IV PRN (17:02)
[2023-06-02] MEDS ORDERED: HYDROmorphone 1 MG/1 ML SYRINGE IV PRN (17:02)
[2023-06-02] MEDS ORDERED: Dexmedetomidine 200 mcg/2 ml 2 ml VIAL (200 mcg) ONE (17:16)
[2023-06-02] MEDS ORDERED: Desflurane 240 ML INH ONE (17:22)
[2023-06-02] MEDS: Enoxaparin 40 MG/0.4 ML SYR SUBCUT SCH (22:19)
[2023-06-03] MEDS: oxyCODONE SR 15 mg TAB PO SCH ×3 (00:17→18:19)
[2023-06-03] MEDS: Nicotine Lozenge mini 2 MG LOZNG.MINI MT PRN ×5 (00:18→22:17)
[2023-06-03] MEDS: Vancomycin 1,250 MG in NS 0.9% 250 ml 250 ML IVPB SCH ×3 (05:35→21:58)
[2023-06-03 07:07] LABS: ABS Lymphocytes 2.1 10^3/uL (1.0-4.8); ABS Monocytes 0.6 10^3/uL (0.0-1.1); ABS Nucleated RBC 0.01 10^3/ul; Eosinophil % 0.4 %; Hematocrit 35.4 % (38-53); Lymphocyte % 21.6 %; Mean Corpuscular Hemoglobin 28.5 pg (27-33); Mean Corpuscular Volume 83.8 fL (80-97); Mean Platelet Volume 7.1 fL (7.5-11.2); Nucleated Red Blood Cells % 0.1 %/100WBC (0.0-0.8); Platelet Count 413 10^3/uL (150-450); Red Blood Count 4.22 10^6/uL (4.06-5.63); Red Cell Distribution Width 13.8 % (12-17); White Blood Count 9.8 10^3/uL (3.6-10.2)
[2023-06-03 07:12] LABS: Calcium 8.8 mg/dL (8.6-10.3); Creatinine, Serum 0.8 mg/dL (0.67-1.17); Potassium 3.9 mmol/L (3.5-5.0); eGFR CKD-EPI 112.6 (>60)
[2023-06-03] MEDS: CMCS:Venlafaxine 25 mg TAB (NF) PO SCH ×2 (08:05→21:56)
[2023-06-03] MEDS: LISDEXAMFETAMINE 10 MG PO SCH (08:07)
[2023-06-03] MEDS: Ondansetron ODT 4 mg TAB 4 MG TAB SL PRN (09:28)
[2023-06-03] MEDS: LORazepam 2 mg VIAL 1 ml IV PUSH PRN (12:16)
[2023-06-03] MEDS ORDERED: HYDROmorphone 0.5 MG/0.5 ML SYRINGE IV SLOW PU PRN (19:11)
[2023-06-03] MEDS: Enoxaparin 40 MG/0.4 ML SYR SUBCUT SCH (21:57)
[2023-06-04] MEDS: oxyCODONE SR 15 mg TAB PO SCH ×4 (00:30→23:55)
[2023-06-04] MEDS: Vancomycin 1,250 MG in NS 0.9% 250 ml 250 ML IVPB SCH ×3 (05:07→22:31)
[2023-06-04] MEDS: LISDEXAMFETAMINE 10 MG PO SCH (08:13)
[2023-06-04] MEDS: CMCS:Venlafaxine 25 mg TAB (NF) PO SCH ×2 (08:13→22:14)
[2023-06-04] MEDS: Nicotine Lozenge mini 2 MG LOZNG.MINI MT PRN ×3 (08:15→22:28)
[2023-06-04] MEDS ORDERED: Morphine 2 MG/ML SYRINGE IV ONE (11:34)
[2023-06-04] MEDS: LORazepam 2 mg VIAL 1 ml IV PUSH PRN (12:00)
[2023-06-04] MEDS: Enoxaparin 40 MG/0.4 ML SYR SUBCUT SCH (22:16)
[2023-06-05] MEDS: Vancomycin 1,250 MG in NS 0.9% 250 ml 250 ML IVPB SCH ×2 (04:06→16:26)
[2023-06-05] MEDS: LISDEXAMFETAMINE 10 MG PO SCH (08:25)
[2023-06-05] MEDS: CMCS:Venlafaxine 25 mg TAB (NF) PO SCH ×2 (08:26→21:10)
[2023-06-05] MEDS: oxyCODONE SR 15 mg TAB PO SCH ×2 (08:28→16:27)
[2023-06-05] MEDS: Nicotine Lozenge mini 2 MG LOZNG.MINI MT PRN ×3 (08:44→21:08)
[2023-06-05] MEDS: LORazepam 2 mg VIAL 1 ml IV PUSH PRN ×3 (10:10→23:05)
[2023-06-05] MEDS ORDERED: Potassium Chlor 20 meq TAB.ER PO ONE (12:02)
[2023-06-05] MEDS ORDERED: Vancomycin Trough Check NOTE FOLLOW UP ONE (12:30)
[2023-06-05 14:16] LABS: Creatinine, Serum 0.8 mg/dL (0.67-1.17); eGFR CKD-EPI 112.6 (>60)
[2023-06-05 15:31] LABS: Vancomycin Trough 16.5 mcg/mL
[2023-06-05] MEDS: Enoxaparin 40 MG/0.4 ML SYR SUBCUT SCH (21:12)
[2023-06-06] MEDS ORDERED: Vancomycin 1000 MG in NS 0.9% 250 ML IVPB SCH (00:30)
[2023-06-06] MEDS: oxyCODONE SR 15 mg TAB PO SCH ×2 (01:01→08:15)
[2023-06-06] MEDS ORDERED: Influenza vaccine *QUAD* *2023-24* 0.5 ML SYRINGE IM ONE (06:00)
[2023-06-06 06:02] VITALS: BP 119/74
[2023-06-06] MEDS: LISDEXAMFETAMINE 10 MG PO SCH (08:14)
[2023-06-06] MEDS: Nicotine Lozenge mini 2 MG LOZNG.MINI MT PRN (08:15)
[2023-06-06] MEDS: CMCS:Venlafaxine 25 mg TAB (NF) PO SCH (08:16)
[2023-06-06] MEDS ORDERED: Vancomycin Trough Check NOTE FOLLOW UP ONE (16:00)
== END 2023-06-06 08:28 | disposition home or self-care (01) | DRG 603 ==
LOC: ED 13:20 → EDHOLD 13:20 → SUATTDRO 22:09 → MEDTELE 06-01 00:08 → SUATTDRO 06-02 10:00
PROVIDERS: ADMIT Internal Medicine; ATTEND Hospitalist

== ENCOUNTER 2023-06-20 19:09 | Inpatient (IN) ==
[2023-06-20] MEDS ORDERED: Vancomycin 1,000 MG in NS 0.9% 250 ml 250 ML IVPB ONE (19:59)
[2023-06-20] MEDS ORDERED: Piperacillin/Tazobac 3.375 BAG 3.375 GM/100 ML BAG IV ONE (19:59)
[2023-06-20 21:07] LABS: ABS Basophils 0.1 10^3/uL (0.0-0.1); ABS Eosinophils 0.2 10^3/uL (0.0-0.5); ABS Lymphocytes 1.5 10^3/uL (1.0-4.8); ABS Monocytes 0.6 10^3/uL (0.0-1.1); ABS Nucleated RBC 0.01 10^3/ul; Eosinophil % 2.5 %; Hematocrit 33.4 % (38-53); Hemoglobin 11.4 g/dL (13.2-16.3); Lymphocyte % 20.8 %; Mean Corpuscular Hemoglobin 28.4 pg (27-33); Mean Corpuscular Volume 83.4 fL (80-97); Mean Platelet Volume 7.1 fL (7.5-11.2); Nucleated Red Blood Cells % 0.1 %/100WBC (0.0-0.8); Platelet Count 321 10^3/uL (150-450); Red Cell Distribution Width 14.8 % (12-17); White Blood Count 7.4 10^3/uL (3.6-10.2)
[2023-06-20 21:12] LABS: INR 1.11 (0.83-1.13)
[2023-06-20 21:26] LABS: Albumin 3.8 g/dL (3.2-5.2); C Reactive Protein 57.02 mg/L (<8.01); Calcium 9.2 mg/dL (8.6-10.3); Creatinine, Serum 0.96 mg/dL (0.67-1.17); Potassium 3.5 mmol/L (3.5-5.0); Total Bilirubin 0.5 mg/dL (0.2-1.0); Total Protein 7.8 g/dL (6.4-8.9); eGFR CKD-EPI 100.6 (>60)
[2023-06-20] MEDS ORDERED: Ondansetron 4 mg VIAL 2 MG/ML 2 ml VIAL IV ONE (22:13)
[2023-06-21] MEDS ORDERED: Vancomycin per Pharmacy 1 EA NOTE FOLLOW UP PRN (03:22)
[2023-06-21] MEDS ORDERED: Vancomycin 1,500 MG in NS 0.9% 250 ml 250 ML IVPB ONE (04:00)
[2023-06-21] MEDS ORDERED: Vancomycin 1,000 MG in NS 0.9% 250 ml 250 ML IVPB SCH (04:00)
[2023-06-21] MEDS ORDERED: Vancomycin 1000 MG in NS 0.9% 250 ML IVPB SCH ×2 (06:00→14:00)
[2023-06-21] MEDS ORDERED: Potassium Chlor 20 meq TAB.ER PO ONE (07:00)
[2023-06-21] MEDS ORDERED: CMCS: Lisdexamfetamine 10 mg CAP(NF) PO SCH (09:00)
[2023-06-21] MEDS: CMCS: Venlafaxine 25 mg TAB (NF) PO SCH ×2 (09:13→21:02)
[2023-06-21] MEDS: CMCS: Lisdexamfetamine 10 mg CAP(NF) PO SCH (11:57)
[2023-06-21] MEDS: Vancomycin 1000 MG in NS 0.9% 250 ML IVPB SCH ×2 (15:26→22:42)
[2023-06-21] MEDS: Nicotine Lozenge mini 4 MG LOZNG.MINI MT PRN ×3 (15:53→23:10)
[2023-06-21] MEDS: Amphetamine MIXED SALT 10mgTAB PO SCH (17:39)
[2023-06-22] MEDS: Nicotine Lozenge mini 4 MG LOZNG.MINI MT PRN ×6 (01:11→21:30)
[2023-06-22] MEDS ORDERED: Vancomycin Trough Check NOTE FOLLOW UP ONE (05:30)
[2023-06-22 06:55] LABS: ABS Eosinophils 0.2 10^3/uL (0.0-0.5); ABS Lymphocytes 1.7 10^3/uL (1.0-4.8); ABS Monocytes 0.4 10^3/uL (0.0-1.1); ABS Neutrophils 2.2 10^3/uL (1.5-7.6); ABS Nucleated RBC 0.01 10^3/ul; Eosinophil % 4.4 %; Hematocrit 32.2 % (38-53); Lymphocyte % 38.2 %; Mean Corpuscular Hemoglobin 28.5 pg (27-33); Mean Corpuscular Hgb Conc 34.1 g/dL (31-36); Mean Corpuscular Volume 83.8 fL (80-97); Mean Platelet Volume 7.2 fL (7.5-11.2); Nucleated Red Blood Cells % 0.2 %/100WBC (0.0-0.8); Platelet Count 232 10^3/uL (150-450); Red Blood Count 3.84 10^6/uL (4.06-5.63); Red Cell Distribution Width 14.6 % (12-17); White Blood Count 4.5 10^3/uL (3.6-10.2)
[2023-06-22] MEDS ORDERED: Lactated Ringers 1000 ml BAG 1,000 ML IV ONE (07:55)
[2023-06-22 07:56] LABS: Calcium 8.6 mg/dL (8.6-10.3); Creatinine, Serum 0.82 mg/dL (0.67-1.17); Magnesium 1.9 mg/dL (1.9-2.7); Potassium 3.8 mmol/L (3.5-5.0); eGFR CKD-EPI 111.8 (>60)
[2023-06-22] MEDS: Vancomycin 1000 MG in NS 0.9% 250 ML IVPB SCH (08:43)
[2023-06-22] MEDS: CMCS: Lisdexamfetamine 10 mg CAP(NF) PO SCH (08:47)
[2023-06-22] MEDS: CMCS: Venlafaxine 25 mg TAB (NF) PO SCH ×2 (08:49→21:26)
[2023-06-22] MEDS: Polyethylene Glycol 3350 17 GM PACKET PO SCH ×2 (08:50→21:26)
[2023-06-22] MEDS: Amphetamine MIXED SALT 10mgTAB PO SCH ×3 (08:57→16:45)
[2023-06-22] MEDS ORDERED: Enoxaparin 40 MG/0.4 ML SYR SUBCUT ONE (14:20)
[2023-06-22] MEDS ORDERED: Senna TAB 8.6 mg TAB PO SCH (21:00)
[2023-06-22] MEDS: Vancomycin 1,250 MG in NS 0.9% 250 ml 250 ML IVPB SCH (22:28)
[2023-06-23] MEDS ORDERED: Naloxone Nasal Spray 4 MG/0.1 ML NASAL.SPR INTRANASAL ONE (00:34)
[2023-06-23] MEDS: Nicotine Lozenge mini 4 MG LOZNG.MINI MT PRN ×4 (00:44→14:04)
[2023-06-23 06:45] LABS: ABS Basophils 0.1 10^3/uL (0.0-0.1); ABS Eosinophils 0.2 10^3/uL (0.0-0.5); ABS Lymphocytes 1.6 10^3/uL (1.0-4.8); ABS Monocytes 0.3 10^3/uL (0.0-1.1); ABS Neutrophils 3.3 10^3/uL (1.5-7.6); ABS Nucleated RBC 0.01 10^3/ul; Eosinophil % 3.2 %; Hematocrit 33.3 % (38-53); Hemoglobin 11.3 g/dL (13.2-16.3); Lymphocyte % 29.5 %; Mean Corpuscular Hemoglobin 28.6 pg (27-33); Mean Corpuscular Volume 84.2 fL (80-97); Mean Platelet Volume 7.4 fL (7.5-11.2); Nucleated Red Blood Cells % 0.1 %/100WBC (0.0-0.8); Platelet Count 246 10^3/uL (150-450); Red Blood Count 3.96 10^6/uL (4.06-5.63); Red Cell Distribution Width 14.6 % (12-17); White Blood Count 5.5 10^3/uL (3.6-10.2)
[2023-06-23 07:33] LABS: Calcium 8.9 mg/dL (8.6-10.3); Creatinine, Serum 0.87 mg/dL (0.67-1.17); Magnesium 1.9 mg/dL (1.9-2.7); Potassium 4.5 mmol/L (3.5-5.0); eGFR CKD-EPI 109.8 (>60)
[2023-06-23] MEDS ORDERED: Magnesium Sulfate IV 1GM/100ML 1 GM/100 ML BAG IV ONE (08:17)
[2023-06-23] MEDS: Polyethylene Glycol 3350 17 GM PACKET PO SCH (08:36)
[2023-06-23] MEDS: Amphetamine MIXED SALT 10mgTAB PO SCH ×3 (08:38→16:41)
[2023-06-23] MEDS: CMCS: Lisdexamfetamine 10 mg CAP(NF) PO SCH (08:38)
[2023-06-23] MEDS: CMCS: Venlafaxine 25 mg TAB (NF) PO SCH (08:39)
[2023-06-23] MEDS ORDERED: Vancomycin per Pharmacy 1 EA NOTE FOLLOW UP PRN (10:30)
[2023-06-23] MEDS: Vancomycin 1,250 MG in NS 0.9% 250 ml 250 ML IVPB SCH (10:52)
[2023-06-23 14:57] VITALS: BP 122/72
[2023-06-25] MEDS ORDERED: Vancomycin Trough Check NOTE FOLLOW UP ONE (10:30)
== END 2023-06-23 16:55 | disposition home or self-care (01) | DRG 603 ==
LOC: ED 19:09 → SUATTDRO 21:36 → INTOOBSV 21:36 → EDHOLD 21:36 → MEDTELE 06-21 13:09
PROVIDERS: ADMIT Internal Medicine; ATTEND Internal Medicine